=== PATIENT | female | born 1990 | race African-American/Black ===

== ENCOUNTER 2016-06-02 21:44 | Outpatient (CLI) | payer BC ==
[2016-06-02] MEDS ORDERED: Terbutaline 1 MG/ML SDV SUBCUT ONE (23:20)
[2016-06-02] MEDS ORDERED: Lactated Ringers 1,000 ML IV SCH (23:30)
== END 2016-06-03 00:58 | disposition home or self-care (01) ==
LOC: MW.OBCHECK 21:44 → MW.OB 21:50 → MW.OBCHECK 06-03 00:58
PROVIDERS: ATTEND Obstetrics & Gynecology
DX: R10.31 Right lower quadrant pain (principal); M54.5 Low back pain
CPT/HCPCS: 59025; 81003; J7120; 96360

== ENCOUNTER → 2016-06-09 | Outpatient (CLI) | payer BC | LOC: MW.CHOBGYN 10:12 | PROVIDERS: ATTEND Obstetrics & Gynecology | DX: Z34.90 Encounter for supervision of normal pregnancy, unspecified, unspecified trimester (principal) | CPT/HCPCS: 81003 ==

== ENCOUNTER 2016-07-20 03:23 | Outpatient (CLI) | payer BC ==
[2016-07-20] MEDS ORDERED: Lactated Ringers 1,000 ML IV ONE (06:28)
== END 2016-07-20 08:53 | disposition home or self-care (01) ==
LOC: MW.OBCHECK 03:23 → MW.OB 03:27 → MW.OBCHECK 08:53
PROVIDERS: ATTEND Obstetrics & Gynecology
DX: O47.02 False labor before 37 completed weeks of gestation, second trimester (principal); Z3A.25 25 weeks gestation of pregnancy
CPT/HCPCS: 59025; 81003; 96360; J7120

== ENCOUNTER → 2016-08-04 | Outpatient (CLI) | payer BC | LOC: MW.CHOBGYN 08:06 | PROVIDERS: ATTEND Obstetrics & Gynecology | DX: Z34.90 Encounter for supervision of normal pregnancy, unspecified, unspecified trimester (principal); Z53.9 Procedure and treatment not carried out, unspecified reason ==

== ENCOUNTER → 2016-08-07 | Outpatient (CLI) | payer BC | END | disposition home or self-care (01) | LOC: MW.CHOBGYN 08:31 | PROVIDERS: ATTEND Obstetrics & Gynecology | DX: Z34.90 Encounter for supervision of normal pregnancy, unspecified, unspecified trimester (principal) | CPT/HCPCS: 81003 ==

== ENCOUNTER 2016-09-22 10:02 | Inpatient (IN) | payer BC ==
[2016-09-22] MEDS: Lactated Ringers 1,000 ML IV SCH ×2 (11:00→15:58)
[2016-09-22] MEDS ORDERED: Octyl 2-Cyanoacrylate 1 Tube ONE (11:12)
[2016-09-22] MEDS ORDERED: Morphine PF 10 MG/10 ML SDV ONE (11:33)
[2016-09-22] MEDS ORDERED: Oxytocin 10 Units/1 ML SDV ONE ×2 (11:34→12:37)
[2016-09-22] MEDS ORDERED: Lactated Ringers 1,000 ML IV ONE (11:45)
[2016-09-22] MEDS ORDERED: Citric Acid/Sodium Citrate Solution 30 ML Cup PO ONE (11:45)
[2016-09-22] MEDS ORDERED: ePHEDrine 50 MG/ML SDV ONE (12:25)
[2016-09-22] MEDS ORDERED: Ondansetron 4 MG/2 ML SDV ONE (12:41)
[2016-09-22] MEDS ORDERED: Ondansetron 4 MG/2 ML SDV IV PRN (12:52)
[2016-09-22] MEDS ORDERED: Acetaminophen/oxyCODONE 325-5 MG Tab PO PRN ×3 (12:52→13:00)
[2016-09-22] MEDS ORDERED: diphenhydrAMINE 50 MG/ML SDV IVPUSH PRN ×2 (12:52→12:58)
[2016-09-22] MEDS ORDERED: Bisacodyl 10 MG Supp RECTAL PRN (12:52)
[2016-09-22] MEDS ORDERED: Lanolin 100% Cream 7 GM Tube TOP PRN (12:52)
[2016-09-22] MEDS ORDERED: Ibuprofen 800 MG Tab PO PRN (12:52)
--- NOTE | 2016-09-22 12:57 | PCM.OPNOTE ---
- General Post-Op/Procedure Note Date of Surgery/Procedure: 09/22/16 Operative Procedure(s): Repeat section Findings: Normal uterus tubes and ovary female fetus Apgars reported to be 8 and 9 Pre Op Diagnosis: Term previous section Post-Op Diagnosis: Same Anesthesia Technique: Spinal Primary Surgeon: Theron Chino Knitting Machine Operator: Ella Nettles EBL in mLs: 500 Complications: None Condition: Good
[2016-09-22] MEDS ORDERED: Meperidine PF 25 MG/ML Syringe IVPUSH ONE (12:58)
[2016-09-22] MEDS ORDERED: Naloxone 0.4 MG/ML Syringe IVPUSH PRN (12:58)
[2016-09-22] MEDS ORDERED: Nalbuphine 10 MG/1 ML Vial IVPUSH PRN (12:58)
[2016-09-22] MEDS ORDERED: Meperidine PF 50 MG/ML Syringe ONE (12:59)
[2016-09-22] MEDS ORDERED: Ketorolac 30 MG/ML SDV IVPUSH SCH (13:00)
[2016-09-22] MEDS ORDERED: fentaNYL 100 MCG/2 ML SDV IVPUSH PRN (13:00)
--- NOTE | 2016-09-22 13:33 | PCM.POSTAN ---
POST ANESTHESIA ASSESSMENT - MENTAL STATUS Mental Status: alert, oriented - RESPIRATORY Respiratory Status: respiratory rate WNL, airway patent, O2 saturation stable - CARDIOVASCULAR CV Status: pulse rate WNL, blood pressure stable - GASTROINTESTINAL GI Status: no symptoms - PAIN Pain Score: 0 (spinal still active) - POST OP HYDRATION Hydration Status: adequate & stable - OBSERVATIONS Free Text/Narrative:: to floor in good condition
--- NOTE | 2016-09-22 20:54 | OR ---
SURGEON: Theron Chino MD DATE OF PROCEDURE: 09/22/2016 PREOPERATIVE DIAGNOSIS: Term , previous section. POSTOPERATIVE DIAGNOSIS: Term , previous section. OPERATION PERFORMED: Repeat low transverse section. DEBEAKER: Ella Nettles. ANESTHESIA: Spinal by Ivory Farias and Dr. Hooper. ESTIMATED BLOOD LOSS: 500 mL. COMPLICATION: None. FINDING: Female fetus in vertex presentation. score reported to be 8 and 9. Weight is not available at the time. INDICATION: This patient is term. She had a previous section. She is admitted for elective repeat section. PROCEDURE IN DETAIL: The patient was brought to the OR, properly identified. After adequate level of spinal anesthesia, the patient was prepped and draped in sterile fashion as usual. Low transverse Pfannenstiel skin incision through the old scar was done. Britta's fascia and rectus fascia was opened in direction of the incision. The 2 recti muscles and peritoneal cavity was entered. Low transverse uterine incision was done and extended manually. Hand and fetus were in a vertex position, delivered without any problem, cried immediately, handed to the resuscitator team, who was present at the time of the section. The score reported to be 8 and 9. The placenta delivered spontaneous, complete, and intact, and repair of the lower uterine segments done with 2-0 Vicryl continuous interlocking in 2 layers. Reperitonealization done with 3-0 Vicryl continuous and this rectus fascia is closed with #1 PDS continuous and the Britta's fascia with 3-0 Vicryl continuous and the skin in a subcuticular fashion and Dermabond. Instrument and sponge count was correct. The patient tolerated the procedure well, went to recovery room in stable general condition. SHIV / TORRES /[id number]
[2016-09-22] MEDS: Docusate Sodium 100 MG Cap PO SCH (21:00)
--- NOTE | 2016-09-23 07:43 | PCM48HPAN ---
Post Anesthesia Note - EVALUATION WITHIN 48HRS OF ANESTHETIC Vital Signs in Normal Range: Yes Patient Participated in Evaluation: Yes Respiratory Function Stable: Yes Airway Patent: Yes Cardiovascular Function Stable: Yes Hydration Status Stable: Yes Pain Control Satisfactory: Yes Nausea and Vomiting Control Satisfactory: Yes Mental Status Recovered: Yes - COMMENTS/OBSERVATIONS Free Text/Narrative:: refusing pain medications
[2016-09-23] MEDS: Docusate Sodium 100 MG Cap PO SCH (09:08)
--- NOTE | 2016-09-23 09:33 | PCM.DCSUM1 ---
Discharge Summary - Hospital Course Free Text/Narrative:: Discharge home with . Follow up in 10 days for incision check and 6 weeks for post exam. - Discharge Data Discharge Date: 09/23/16 Discharge Disposition: Home, Self-Care 01 Condition: Good - Patient Summary/Data Operative Procedure(s) Performed: Repeat section - Patient Instructions Diet: Usual Diet as Tolerated Activity: As Tolerated, Rest and Relax Today Driving: Do Not Drive Showering/Bathing: May Shower Wound/Incision Care: Keep Operative Site/Wound Site Clean and Dry Notify Provider of: Fever, Increased Pain, Swelling and Redness, Drainage, Nausea and/or Vomiting Other/Special Instructions: Discharge home with infant. Follow up in 10 days for incision check and 6 weeks for post exam. - Discharge Plan Home Medications: Home Meds Acetaminophen [Tylenol] 2 tab PO ASDIRECTED PRN 09/20/16 [History] Vit W-Ca,Fe,FA(<1 mg) [ Vitamins] 1 tab PO DAILY 09/20/16 [ History] Referrals: [facility] [Outside] Theron Chino MD [Physician] - (1 week- September 29 @ 1:30pm w/ Dr. Chino 6 week - November 03 @ 1:30pm w/ Dr. Chino ) - General Info Date of Service: 09/23/16 Functional Status: Reports: pain controlled, tolerating diet, ambulating, urinating - Review of Systems General: Reports: No Symptoms HEENT: Reports: no symptoms Pulmonary: Reports: no symptoms Cardiovascular: Reports: No Symptoms Gastrointestinal: Reports: No symptoms Genitourinary: Reports: no symptoms Musculoskeletal: Reports: no symptoms Skin: Reports: no symptoms Neurological: Reports: No Symptoms Psychiatric: Reports: no symptoms - Patient Data Vitals - Most Recent: Last Vital Signs Temp 37.2 C 09/23/16 04:00 Pulse 78 09/23/16 06:00 Resp 16 09/23/16 06:00 BP 98/58 L 09/23/16 04:00 Pulse Ox 98 09/23/16 06:00 Weight - Most Recent: 78.018 kg I&O - Last 24 hours: Intake & Output 09/22/16 09/23/16 09/23/16 22:59 06:59 14:59 Intake Total 500 Output Total 350 3000 Balance 150 -3000 Lab Results - Last 24 hrs: Laboratory Results - last 24 hr 09/22/16 09/22/16 09/22/16 Range/Units 10:50 10:50 10:50 WBC 8.85 (4.0-11.0) K/uL RBC 4.16 L (4.30-5.90) M/uL Hgb 13.4 (12.0-16.0) g/dL Hct 40.4 (36.0-46.0) % MCV 97.1 (80.0-98.0) fL MCH 32.2 H (27.0-32.0) pg MCHC 33.2 (31.0-37.0) g/dL RDW Std Deviation 46.4 (28.0-62.0) fl RDW Coeff of Fely 13 (11.0-15.0) % Plt Count 116 L (150-400) K/uL MPV 13.10 H (7.40-12.00) fL Nucleated RBC % 0.0 /100WBC Nucleated RBCs # 0 K/uL Total Bilirubin 1.3 (0.1-1.5) mg/dL Direct Bilirubin 0.4 (0.0-0.5) mg/dL Indirect Bilirubin 0.9 (0.0-1.0) mg/dL AST 17 (5-40) IU/L ALT 12 (8-54) IU/L Alkaline Phosphatase 59 (40-150) Total Protein 6.9 (6.0-8.0) g/dL Albumin 3.7 (3.5-5.0) g/dL Globulin 3.2 (2.0-3.5) g/dL Albumin/Globulin Ratio 1.2 L (1.3-2.8) Blood Type A POSITIVE Antibody Screen NEGATIVE 09/23/16 Range/Units 05:38 WBC (4.0-11.0) K/uL RBC (4.30-5.90) M/uL Hgb 11.2 L (12.0-16.0) g/dL Hct 34.5 L (36.0-46.0) % MCV (80.0-98.0) fL MCH (27.0-32.0) pg MCHC (31.0-37.0) g/dL RDW Std Deviation (28.0-62.0) fl RDW Coeff of Fely (11.0-15.0) % Plt Count (150-400) K/uL MPV (7.40-12.00) fL Nucleated RBC % /100WBC Nucleated RBCs # K/uL Total Bilirubin (0.1-1.5) mg/dL Direct Bilirubin (0.0-0.5) mg/dL Indirect Bilirubin (0.0-1.0) mg/dL AST (5-40) IU/L ALT (8-54) IU/L Alkaline Phosphatase (40-150) Total Protein (6.0-8.0) g/dL Albumin (3.5-5.0) g/dL Globulin (2.0-3.5) g/dL Albumin/Globulin Ratio (1.3-2.8) Blood Type Antibody Screen Med Orders - Current: Current Medications Bisacodyl (Dulcolax) 10 mg RECTAL .ONCE PRN PRN Reason: Constipation Diphenhydramine HCl (Benadryl) 25 mg IVPUSH Q4H PRN PRN Reason: Itching Stop: 09/23/16 12:59 Docusate Sodium (Colace) 100 mg PO BID [facility] Last Admin: 09/23/16 09:08 Dose: 100 mg Emollient Ointment (Lansinoh Hpa) 0 gm TOP ASDIRECTED PRN PRN Reason: Sore Nipples Fentanyl (Sublimaze) 25 - 50 mcg IVPUSH Q30M PRN PRN Reason: Pain Lactated Ringer's (Ringers, Lactated) 1,000 mls @ 125 mls/hr IV ASDIRECTED [facility] Last Admin: 09/22/16 15:58 Dose: 125 mls/hr Nalbuphine HCl (Nubain) 5 mg IVPUSH Q3H PRN PRN Reason: Pruritis Stop: 09/23/16 13:00 Naloxone HCl (Narcan) 0.1 mg IVPUSH ONETIME PRN PRN Reason: Other Stop: 09/23/16 13:00 Ondansetron HCl (Zofran) 4 mg IV Q4H PRN PRN Reason: Nausea/Vomiting Oxycodone/Acetaminophen (Percocet 325-5 Mg) 1 tab PO Q4H PRN PRN Reason: Pain (moderate 4-6) Oxycodone/Acetaminophen (Percocet 325-5 Mg) 2 tab PO Q4H PRN PRN Reason: Pain (moderate 4-6) Oxycodone/Acetaminophen (Percocet 325-5 Mg) 1 - 2 tab PO Q6H PRN PRN Reason: Pain Stop: 09/24/16 14:00 Last Admin: 09/23/16 09:09 Dose: 1 tab Discontinued Medications Diphenhydramine HCl (Benadryl) 25 mg IVPUSH Q6H PRN PRN Reason: Itching or Nausea Ephedrine Sulfate (Ephedrine Sulfate) Confirm Administered Dose 50 mg .ROUTE .STK-MED ONE Stop: 09/22/16 12:26 Cefazolin Sodium/Dextrose (Ancef) Confirm Administered Dose 50 mls @ as directed .ROUTE .STK-MED ONE Stop: 09/22/16 12:05 Ibuprofen (Motrin) 800 mg PO Q8H PRN PRN Reason: mild pain or fever Ketorolac Tromethamine (Toradol) 30 mg IVPUSH Q6H JAY Stop: 09/23/16 13:01 Last Admin: 09/22/16 16:51 Dose: Not Given Meperidine HCl (Demerol) 25 mg IVPUSH ONETIME ONE Stop: 09/22/16 12:59 Last Admin: 09/22/16 16:48 Dose: Not Given Meperidine HCl (Demerol) Confirm Administered Dose 50 mg .ROUTE .STK-MED ONE Stop: 09/22/16 13:00 Last Admin: 09/22/16 13:15 Dose: 50 mg Morphine Sulfate (Duramorph Pf) Confirm Administered Dose 10 mg .ROUTE .STK-MED ONE Stop: 09/22/16 11:34 Octyl Cyanoacrylate (Dermabond Advance) Confirm Administered Dose 1 applic .ROUTE .STK-MED ONE Stop: 09/22/16 11:13 Ondansetron HCl (Zofran) Confirm Administered Dose 4 mg .ROUTE .STK-MED ONE Stop: 09/22/16 12:42 Oxytocin (Pitocin) Confirm Administered Dose 20 unit .ROUTE .STK-MED ONE Stop: 09/22/16 11:35 Oxytocin (Pitocin) Confirm Administered Dose 20 unit .ROUTE .STK-MED ONE Stop: 09/22/16 12:38 - Exam General: Reports: alert, oriented, cooperative, no acute distress Lungs: Reports: Normal respiratory effort Abdomen: Reports: soft, no distension, tenderness (Female) Exam: Vaginal Bleeding Rectal (Female) Exam: Deferred Back Exam: Reports: Full Range of Motion Skin: Reports: warm, dry, intact Neurological: Reports: no new focal deficit, normal speech, normal tone Psy/Mental Status: Reports: alert, normal affect, normal mood *Q Meaningful Use (DIS) - VTE *Q VTE Criteria *Q: - Stroke *Q Stroke Criteria *Q: - AMI *Q AMI Criteria *Q:
[2016-09-23 19:53] VITALS: BP 105/68
== END 2016-09-23 23:25 | disposition home or self-care (01) | DRG 540 ==
LOC: MW.OB 10:02
PROVIDERS: ADMIT Obstetrics & Gynecology; ATTEND Obstetrics & Gynecology
PROC: 10D00Z1 Extraction of Products of Conception, Low, Open Approach (ICD-10-PCS; principal; 2016-09-22)
DX: O34.211 Maternal care for low transverse scar from previous cesarean delivery (principal); Z3A.40 40 weeks gestation of pregnancy; Z37.0 Single live birth
CPT/HCPCS: 01961; 36415; 59025; 80076; 85014; 85018; 85027; 86850; 86900; 86901; A9270-GY; J0690; J2175; J2270; J2405; J2590; J7120

== ENCOUNTER 2017-02-08 09:36 | Emergency (ER) | payer BC ==
--- NOTE | 2017-02-08 10:30 | EDM.PDOC ---
ED HPI GENERAL MEDICAL PROBLEM - General Chief Complaint: Back Pain or Injury Stated Complaint: BACK PAIN Time Seen by Provider: 02/08/17 10:09 Source of Information: Reports: Patient History Limitations: Reports: No Limitations - History of Present Illness INITIAL COMMENTS - FREE TEXT/NARRATIVE: HISTORY AND PHYSICAL: History of present illness: Patient is a 27-year-old female who presents to the emergency room today with complaints of upper back pain 3 days. She essentially had a vaginal delivery and has since been doing a lot of lifting and carrying of her child and toddler. He states the pain is aggravated when she has to reach down to crop picker her kids or twist to reach across her chest. She denies any chest pain, shortness of breath, diaphoresis or fever or chills. Denies any cough, abdominal pain, or dysuria. No recent trauma or injury. She is currently breast-feeding. Review of systems: As per history of present illness and below otherwise all systems reviewed and negative. Past medical history: As per history of present illness and as reviewed below otherwise noncontributory. Surgical history: As per history of present illness and as reviewed below otherwise noncontributory. Social history: No reported history of drug or alcohol abuse. Family history: As per history of present illness and as reviewed below otherwise noncontributory. Physical exam: Gen.: Nontoxic appearing 27-year-old -[place] female. Well-developed and well-nourished. Alert and oriented. HEENT: Atraumatic, normocephalic, pupils reactive, negative for conjunctival pallor or scleral icterus, mucous membranes moist, throat clear, neck supple, nontender, trachea midline. Lungs: Clear to auscultation, breath sounds equal bilaterally, chest nontender. Heart: S1S2, regular, negative for clicks, rubs, or JVD. Abdomen: Soft, nondistended, nontender. Negative for masses or hepatosplenomegaly. Negative for costovertebral tenderness. Pelvis: Stable nontender. Genitourinary: Deferred. Rectal: Deferred. Extremities: Atraumatic, negative for cords or calf pain. Neurovascular unremarkable. Neuro: Awake, alert, oriented. Cranial nerves II through XII unremarkable. Cerebellum unremarkable. Motor and sensory unremarkable throughout. Exam nonfocal. Chest x-ray shows no pneumonia or acute findings. Her pain is likely to be a muscular strain. We did discuss that with her breast-feeding she is limited to what she can take your pain management. I did suggest she use gentle heat to the area and Tylenol. Proper body mechanics were reviewed with the patient to avoid re-injury. She voices understanding and is agreeable to plan of care. She will follow up with her primary care provider in the next couple days if she continues to have pain. Diagnostics: Chest x-ray Therapeutics: Toradol - declined Impression: Muscular strain Plan: 1. Apply gentle heat to the painful area. With breast-feeding you are limited to what he can take for pain management. Tylenol is safe and can be taken as directed. 2. Perform proper body mechanics to prevent reinjury. 3. Follow-up with your primary care provider in the next 1-2 days. Return to the ED as needed and as discussed. Definitive disposition and diagnosis as appropriate pending reevaluation and review of above. 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 ED EXAM, UPPER BACK/NECK PAIN - Physical Exam Exam: See Below (See dictation) Course - Vital Signs Last Recorded V/S: Last Vital Signs Temp 37.0 C 02/08/17 09:49 Pulse 105 H 02/08/17 09:49 Resp 12 02/08/17 09:49 BP 118/70 02/08/17 09:49 Pulse Ox 98 02/08/17 09:49 - Orders/Labs/Meds Meds: Medications Discontinued Medications Generic Name Dose Route Start Last Admin Trade Name Edson PRN Reason Stop Dose Admin Ketorolac Tromethamine 60 mg 02/08/17 10:39 Toradol IM 02/08/17 10:40 ONETIME ONE Departure - Departure Time of Disposition: 11:29 Disposition: Home, Self-Care 01 Clinical Impression: Muscle strain - Discharge Information Instructions: Muscle Strain, [id number] Referrals: PCP,None [Primary Care Provider] - Forms: ED Department Discharge Additional Instructions: My general discharge The following information is given to patients seen in the emergency department who are being discharged to home. This information is to outline your options for follow-up care. We provide all patients seen in our emergency department with a follow-up referral. The need for follow-up, as well as the timing and circumstances, are variable depending upon the specifics of your emergency department visit. If you don't have a primary care physician on staff, we will provide you with a referral. We always advise you to contact your personal physician following an emergency department visit to inform them of the circumstance of the visit and for follow-up with them and/or the need for any referrals to a consulting specialist. The emergency department will also refer you to a specialist when appropriate. This referral assures that you have the opportunity for follow-up care with a specialist. All of these measure are taken in an effort to provide you with optimal care, which includes your follow-up. Under all circumstances we always encourage you to contact your private physician who remains a resource for coordinating your care. When calling for follow-up care, please make the office aware that this follow-up is from your recent emergency room visit. If for any reason you are refused follow-up, please contact the [facility] Emergency Department at and asked to speak to the emergency department charge nurse. [facility] [address] [place] [id number] 1. Apply gentle heat to the painful area. With breast-feeding you are limited to what he can take for pain management. Tylenol is safe and can be taken as directed. 2. Perform proper body mechanics to prevent reinjury. 3. Follow-up with your primary care provider in the next 1-2 days. Return to the ED as needed and as discussed.
[2017-02-08] MEDS ORDERED: Ketorolac 60 MG/2 ML SDV IM ONE (10:39)
--- NOTE | 2017-02-08 10:54 | CR ---
EXAMINATION: Two-view chest (PA and Lateral views). HISTORY: Shortness of breath. FINDINGS: The trachea is midline. The cardiomediastinal silhouette is within normal limits. No pulmonary infilt rates, effusions or pneumothorax. Osseous structures appear unremarkable. IMPRESSION: No acute cardiopulmonary process.
[2017-02-08 11:41] VITALS: BP 110/72
== END 2017-02-08 11:40 | disposition home or self-care (01) ==
LOC: MW.ED 09:36
DX: S29.012A Strain of muscle and tendon of back wall of thorax, initial encounter (principal); Z88.6 Allergy status to analgesic agent; X50.9XXA Other and unspecified overexertion or strenuous movements or postures, initial encounter
CPT/HCPCS: 71020; 71020-26; 99283; 99284

== ENCOUNTER 2017-12-22 14:55 | Emergency (ER) | payer BC ==
[2017-12-22 15:02] VITALS: BP 129/75
[2017-12-22] MEDS ORDERED: Sodium Chloride 0.9% 10 ML Syringe FLUSH PRN (15:19)
[2017-12-22] MEDS ORDERED: Sodium Chloride 0.9% 2.5 ML Syringe FLUSH PRN ×2 (15:19)
[2017-12-22] MEDS ORDERED: Aspirin 81 MG Tab.Chew PO ONE (15:19)
[2017-12-22] MEDS ORDERED: Famotidine 20 MG/2 ML SDV IVPUSH ONE (15:19)
[2017-12-22] MEDS ORDERED: Sodium Chloride 0.9% 1,000 ML IV ONE (15:19)
--- NOTE | 2017-12-22 15:21 | EDM.PDOC ---
ED HPI GENERAL MEDICAL PROBLEM - General Chief Complaint: Chest Pain Stated Complaint: CHEST PAIN Time Seen by Provider: 12/22/17 15:04 Source of Information: Reports: Patient History Limitations: Reports: No Limitations - History of Present Illness INITIAL COMMENTS - FREE TEXT/NARRATIVE: HISTORY AND PHYSICAL: History of present illness: 27-year-old female presenting [facility] department with chief complaint of 2 days of substernal chest pain. Patient states that for the past 2 days she has had substernal chest pain that radiates upwards towards her throat. She denies any associated nausea, vomiting , diaphoresis, or shortness of breath. She does have a history of GERD but states that this seems different. She does take omeprazole but not on a daily basis. She describes the pain as burning and constant. She denies any other history of cardiopulmonary disease. She currently denies any palpitations, shortness of breath, syncopal episodes, or focal neurologic deficits. Pain is not reproducible on exam. Initial EKG showed sinus tachycardia with a rate of 118 but no significant acute ST changes Review of systems: As per history of present illness and below otherwise all systems reviewed and negative. Past medical history: As per history of present illness and as reviewed below otherwise noncontributory. Surgical history: As per history of present illness and as reviewed below otherwise noncontributory. Social history: No reported history of drug or alcohol abuse. Family history: As per history of present illness and as reviewed below otherwise noncontributory. Physical exam: HEENT: Atraumatic, normocephalic, pupils reactive, negative for conjunctival pallor or scleral icterus, mucous membranes moist, throat clear, neck supple, nontender, trachea midline. Lungs: Clear to auscultation, breath sounds equal bilaterally, chest nontender. Heart: S1S2, regular, negative for clicks, rubs, or JVD. Abdomen: Soft, nondistended, nontender. Negative for masses or hepatosplenomegaly. Negative for costovertebral tenderness. Pelvis: Stable nontender. Genitourinary: Deferred. Rectal: Deferred. Extremities: Atraumatic, negative for cords or calf pain. Neurovascular unremarkable. Neuro: Awake, alert, oriented. Cranial nerves II through XII unremarkable. Cerebellum unremarkable. Motor and sensory unremarkable throughout. Exam nonfocal. Diagnostics: CBC, CMP, INR, troponin, d-dimer, H. pylori, chest x-ray, EKG Therapeutics: ASA 324 mg 1 GI cocktail Omeprazole 20 mg by mouth twice a day 14 days, clarithromycin 500 mg by mouth twice a day 14 days, amoxicillin 1000 g by mouth twice a day 10 days Impression: Atypical chest pain Plan: CBC, CMP, INR, troponin, d-dimer, chest x-ray, and EKG were unremarkable other than for sinus tachycardia. Patient was given a GI cocktail with some improvement with her chest pain. In addition, H. pylori was found to be positive. I did discuss this at length with the patient as well as her and told them that she would need to be on 2 antibiotics for 14 days as well as omeprazole twice daily for this duration. In addition she should follow-up and establish a primary care provider. All this information was given to her. I also indicated that in the future she most likely should follow-up with a general surgeon to have an EGD done. Both patient and were understanding. Patient was discharged in good condition with above instructions and told to return to the emergency department if she had any new or worsening symptoms. Definitive disposition and diagnosis as appropriate pending reevaluation and review of above. 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 ED EXAM, GENERAL - Physical Exam Exam: See Below Course - Vital Signs Last Recorded V/S: Last Vital Signs Temp 98.2 F 12/22/17 14:58 Pulse 118 H 12/22/17 14:58 Resp 20 12/22/17 14:58 BP 129/75 12/22/17 14:58 Pulse Ox 97 12/22/17 15:19 - Orders/Labs/Meds Orders: Active Orders 24 hr Category Date Time Status Cardiac Monitoring [RC] . DIRECTED Care 12/22/17 15:19 Active EKG Documentation Completion [RC] STAT Care 12/22/17 15:19 Active Oxygen Therapy [RC] ASDIRECTED Care 12/22/17 15:19 Active Pulse Oximetry [RC] ASDIRECTED Care 12/22/17 15:19 Active Chest 1V Frontal [CR] Stat Exams 12/22/17 15:19 Taken UA W/MICROSCOPIC [URIN] Stat Lab 12/22/17 15:20 Ordered Saline Lock Insert [OM.PC] Stat Oth 12/22/17 15:19 Ordered Labs: Laboratory Tests 12/22/17 12/22/17 12/22/17 Range/Units 15:38 15:38 15:38 WBC 6.15 (4.0-11.0) K/uL RBC 4.65 (4.30-5.90) M/uL Hgb 14.3 (12.0-16.0) g/dL Hct 43.3 (36.0-46.0) % MCV 93.1 (80.0-98.0) fL MCH 30.8 (27.0-32.0) pg MCHC 33.0 (31.0-37.0) g/dL RDW Std Deviation 42.5 (28.0-62.0) fl RDW Coeff of Fely 13 (11.0-15.0) % Plt Count 153 (150-400) K/uL MPV 13.20 H (7.40-12.00) fL Neut % (Auto) 36.4 L (48.0-80.0) % Lymph % (Auto) 49.6 H (16.0-40.0) % [place] % (Auto) 7.8 (0.0-15.0) % Eos % (Auto) 5.7 (0.0-7.0) % Baso % (Auto) 0.5 (0.0-1.5) % Neut # (Auto) 2.2 (1.4-5.7) K/uL Lymph # (Auto) 3.1 H (0.6-2.4) K/uL [place] # (Auto) 0.5 (0.0-0.8) K/uL Eos # (Auto) 0.4 (0.0-0.7) K/uL Baso # (Auto) 0.0 (0.0-0.1) K/uL Nucleated RBC % 0.0 /100WBC Nucleated RBCs # 0 K/uL INR 1.03 D-Dimer, Quantitative < 0.19 (0.0-0.52) mg/LFEU Sodium 140 (136-145) mmol/L Potassium 3.4 L (3.5-5.1) mmol/L Chloride 103 (98-107) mmol/L Carbon Dioxide 27.5 (21.0-32.0) mmol/L BUN 15 (7.0-18.0) mg/dL Creatinine 0.9 (0.6-1.0) mg/dL Est Cr Clr Drug Dosing 82.11 mL/min Estimated GFR (MDRD) > 60.0 ml/min Glucose 81 (74-106) mg/dL Calcium 9.7 (8.5-10.1) mg/dL Total Bilirubin 0.7 (0.2-1.0) mg/dL AST 13 L (15-37) IU/L ALT 18 (14-63) IU/L Alkaline Phosphatase 61 (46-116) U/L Troponin I < 0.050 (0.000-0.056) ng/mL Total Protein 7.6 (6.4-8.2) g/dL Albumin 4.0 (3.4-5.0) g/dL Globulin 3.6 H (2.0-3.5) g/dL Albumin/Globulin Ratio 1.1 L (1.3-2.8) Lipase 155 (73-393) U/L H. pylori IgG Antibody (NEG) 12/22/17 Range/Units 16:00 WBC (4.0-11.0) K/uL RBC (4.30-5.90) M/uL Hgb (12.0-16.0) g/dL Hct (36.0-46.0) % MCV (80.0-98.0) fL MCH (27.0-32.0) pg MCHC (31.0-37.0) g/dL RDW Std Deviation (28.0-62.0) fl RDW Coeff of Fely (11.0-15.0) % Plt Count (150-400) K/uL MPV (7.40-12.00) fL Neut % (Auto) (48.0-80.0) % Lymph % (Auto) (16.0-40.0) % [place] % (Auto) (0.0-15.0) % Eos % (Auto) (0.0-7.0) % Baso % (Auto) (0.0-1.5) % Neut # (Auto) (1.4-5.7) K/uL Lymph # (Auto) (0.6-2.4) K/uL [place] # (Auto) (0.0-0.8) K/uL Eos # (Auto) (0.0-0.7) K/uL Baso # (Auto) (0.0-0.1) K/uL Nucleated RBC % /100WBC Nucleated RBCs # K/uL INR D-Dimer, Quantitative (0.0-0.52) mg/LFEU Sodium (136-145) mmol/L Potassium (3.5-5.1) mmol/L Chloride (98-107) mmol/L Carbon Dioxide (21.0-32.0) mmol/L BUN (7.0-18.0) mg/dL Creatinine (0.6-1.0) mg/dL Est Cr Clr Drug Dosing mL/min Estimated GFR (MDRD) ml/min Glucose (74-106) mg/dL Calcium (8.5-10.1) mg/dL Total Bilirubin (0.2-1.0) mg/dL AST (15-37) IU/L ALT (14-63) IU/L Alkaline Phosphatase (46-116) U/L Troponin I (0.000-0.056) ng/mL Total Protein (6.4-8.2) g/dL Albumin (3.4-5.0) g/dL Globulin (2.0-3.5) g/dL Albumin/Globulin Ratio (1.3-2.8) Lipase (73-393) U/L H. pylori IgG Antibody POSITIVE H (NEG) Meds: Medications Discontinued Medications Generic Name Dose Route Start Last Admin Trade Name Freq PRN Reason Stop Dose Admin Aspirin 324 mg 12/22/17 15:19 12/22/17 16:26 Aspirin PO 12/22/17 15:20 324 mg ONETIME ONE Administration Al Hydroxide/Mg Hydroxide 15 0 ml 12/22/17 16:00 12/22/17 16:29 ml/ Lidocaine HCl 5 ml PO 12/22/17 16:01 1 each ONETIME ONE Administration Famotidine 20 mg 12/22/17 15:19 12/22/17 16:05 Pepcid IVPUSH 12/22/17 15:20 Not Given ONETIME ONE Sodium Chloride 1,000 mls @ 999 mls/hr 12/22/17 15:19 12/22/17 16:06 Normal Saline IV 12/22/17 16:19 Not Given BOLUS ONE Lorazepam 1 mg 12/22/17 16:00 12/22/17 16:27 Ativan PO 12/22/17 16:01 1 mg ONETIME ONE Administration Sodium Chloride 2.5 ml 12/22/17 15:19 Saline Flush FLUSH ASDIRECTED PRN Keep Vein Open Sodium Chloride 10 ml 12/22/17 15:19 Saline Flush FLUSH ASDIRECTED PRN Keep Vein Open Sodium Chloride 2.5 ml 12/22/17 15:19 Saline Flush FLUSH ASDIRECTED PRN Keep Vein Open Departure - Departure Time of Disposition: 16:59 Disposition: Home, Self-Care 01 Condition: Good Clinical Impression: Atypical chest pain, Helicobacter positive gastritis GERD (gastroesophageal reflux disease) Qualifiers: Esophagitis presence: esophagitis presence not specified Qualified Code(s): K21.9 - Gastro-esophageal reflux disease without esophagitis - Discharge Information Referrals: PCP,None [Primary Care Provider] - Forms: ED Department Discharge Additional Instructions: My general discharge The following information is given to patients seen in the emergency department who are being discharged to home. This information is to outline your options for follow-up care. We provide all patients seen in our emergency department with a follow-up referral. The need for follow-up, as well as the timing and circumstances, are variable depending upon the specifics of your emergency department visit. If you don't have a primary care physician on staff, we will provide you with a referral. We always advise you to contact your personal physician following an emergency department visit to inform them of the circumstance of the visit and for follow-up with them and/or the need for any referrals to a consulting specialist. The emergency department will also refer you to a specialist when appropriate. This referral assures that you have the opportunity for follow-up care with a specialist. All of these measure are taken in an effort to provide you with optimal care, which includes your follow-up. Under all circumstances we always encourage you to contact your private physician who remains a resource for coordinating your care. When calling for follow-up care, please make the office aware that this follow-up is from your recent emergency room visit. If for any reason you are refused follow-up, please contact the [facility] Emergency Department at and asked to speak to the emergency department charge nurse. [facility] [address] [place] [address] Please call above number on Sunday to schedule a follow-up appointment with a primary care physician. Be sure to tell them that you were seen in the emergency department and they wish for you to be seen as soon as possible. Take all Prescription medications as directed for 2 weeks (14 days). Return to emergency department if any new or worsening symptoms. - My Orders Last 24 Hours: My Active Orders 12/22/17 15:19 Cardiac Monitoring [RC] . DIRECTED EKG Documentation Completion [RC] STAT Oxygen Therapy [RC] ASDIRECTED Pulse Oximetry [RC] ASDIRECTED Chest 1V Frontal [CR] Stat Saline Lock Insert [OM.PC] Stat 12/22/17 15:20 UA W/MICROSCOPIC [URIN] Stat - Assessment/Plan Last 24 Hours: My Active Orders 12/22/17 15:19 Cardiac Monitoring [RC] . DIRECTED EKG Documentation Completion [RC] STAT Oxygen Therapy [RC] ASDIRECTED Pulse Oximetry [RC] ASDIRECTED Chest 1V Frontal [CR] Stat Saline Lock Insert [OM.PC] Stat 12/22/17 15:20 UA W/MICROSCOPIC [URIN] Stat
[2017-12-22] MEDS ORDERED: Alum Hydrox/Mag Hydrox/Simeth 15 ML, Lidocaine 2% 5 ML PO ONE ×2 (16:00)
[2017-12-22] MEDS ORDERED: LORazepam 1 MG Tab PO ONE (16:00)
[2017-12-22 16:14] LABS: CHLORIDE,CL 103 mmol/L (98-107); SODIUM,NA 140 mmol/L (136-145)
--- NOTE | 2017-12-24 14:45 | CR ---
EXAM DATE: 12/22/17 PATIENT'S AGE: 27 Patient: USAMA RAMIREZ Facility: [place], [place] Site . Site : 1990 Study: XRay Chest [id number]/22/[id number] 4:07:31 PM Ordering Physician: Doctor Cerda Final Report: HISTORY: Chest pain. FINDINGS: Single AP view of the chest is provided. The lungs are normally expanded and clear. No pleural effusion or pneumothorax is seen. There is likely nipple shadow at the right lung base. Cardiac silhouette size is within normal limits. Dictated by Jl Thornton MD @ Dec 22 2017 4:40PM (Electronic Signature) Report Signed by Proxy. EL
== END 2017-12-22 17:15 | disposition home or self-care (01) ==
LOC: MW.ED 14:55
DX: K29.70 Gastritis, unspecified, without bleeding (principal); B96.81 Helicobacter pylori [H. pylori] as the cause of diseases classified elsewhere; K21.9 Gastro-esophageal reflux disease without esophagitis; Z79.899 Other long term (current) drug therapy; Z88.6 Allergy status to analgesic agent
CPT/HCPCS: 36415; 71045; 80053; 83690; 84484; 85025; 85379; 85610; 86677; 93005; 99285; A9270; 99284

== ENCOUNTER 2018-07-29 23:01 | Emergency (ER) | payer BC ==
--- NOTE | 2018-07-29 23:05 | EDM.PDOC ---
ED HPI GENERAL MEDICAL PROBLEM - General Stated Complaint: CHEST PAIN Time Seen by Provider: 07/29/18 23:03 - History of Present Illness INITIAL COMMENTS - FREE TEXT/NARRATIVE: HISTORY AND PHYSICAL: History of present illness: Patient's a 28-year-old female with no significant past medical history presents with concern of chest pain and upper back pain tonight iswithin shortness breath nausea vomiting fever chills or other complaints she denies trauma Review of systems: As per history of present illness and below otherwise all systems reviewed and negative. Past medical history: As per history of present illness and as reviewed below otherwise noncontributory. Surgical history: As per history of present illness and as reviewed below otherwise noncontributory. Social history: No reported history of drug or alcohol abuse. Family history: As per history of present illness and as reviewed below otherwise noncontributory. Physical exam: HEENT: Atraumatic, normocephalic, pupils reactive, negative for conjunctival pallor or scleral icterus, mucous membranes moist, throat clear, neck supple, nontender, trachea midline. Lungs: Clear to auscultation, breath sounds equal bilaterally, chest nontender. Heart: S1S2, regular, negative for clicks, rubs, or JVD. Abdomen: Soft, nondistended, nontender. Negative for masses or hepatosplenomegaly. Negative for costovertebral tenderness. Pelvis: Stable nontender. Genitourinary: Deferred. Rectal: Deferred. Extremities: Atraumatic, negative for cords or calf pain. Neurovascular unremarkable. Neuro: Awake, alert, oriented. Cranial nerves II through XII unremarkable. Cerebellum unremarkable. Motor and sensory unremarkable throughout. Exam nonfocal. Diagnostics: CBC CMP troponin PT/INR chest x-ray EKG d-dimer hCG Therapeutics: IV O2 monitor Impression: #1 chest/upper back pain Definitive disposition and diagnosis as appropriate pending reevaluation and review of above. - Related Data Allergies Allergy/AdvReac Type Severity Reaction Status Date / Time ibuprofen Allergy Tachycardia Verified 07/29/18 23:05 Home Meds: Home Meds . 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 ED EXAM, GENERAL - Physical Exam Exam: See Below (See dictation) Course - Vital Signs Last Recorded V/S: Last Vital Signs Temp 36.4 C 07/29/18 23:01 Pulse 90 07/30/18 00:59 Resp 18 07/30/18 00:59 BP 124/85 07/30/18 00:59 Pulse Ox 94 L 07/30/18 00:59 - Orders/Labs/Meds Orders: Active Orders 24 hr Category Date Time Status EKG 12 Lead [EKG Documentation Completion] [RC] STAT Care 07/30/18 00:56 Active EKG Documentation Completion [RC] STAT Care 07/29/18 23:06 Active CULTURE URINE [RM] Stat Lab 07/29/18 23:22 Received Sodium Chloride 0.9% [Saline Flush] Med 07/29/18 23:06 Active 10 ml FLUSH ASDIRECTED PRN Sodium Chloride 0.9% [Saline Flush] Med 07/29/18 23:06 Active 2.5 ml FLUSH ASDIRECTED PRN Saline Lock Insert [OM.PC] Stat Oth 07/29/18 23:06 Ordered Medication Orders Sodium Chloride (Saline Flush) 10 ml FLUSH ASDIRECTED PRN PRN Reason: Keep Vein Open Sodium Chloride (Saline Flush) 2.5 ml FLUSH ASDIRECTED PRN PRN Reason: Keep Vein Open Labs: Laboratory Tests 07/29/18 07/29/18 07/29/18 Range/Units 23:12 23:12 23:12 WBC 10.60 (4.0-11.0) K/uL RBC 4.32 (4.30-5.90) M/uL Hgb 13.6 (12.0-16.0) g/dL Hct 40.8 (36.0-46.0) % MCV 94.4 (80.0-98.0) fL MCH 31.5 (27.0-32.0) pg MCHC 33.3 (31.0-37.0) g/dL RDW Std Deviation 44.2 (28.0-62.0) fl RDW Coeff of Fely 13 (11.0-15.0) % Plt Count 188 (150-400) K/uL MPV 13.20 H (7.40-12.00) fL Neut % (Auto) 22.1 L (48.0-80.0) % Lymph % (Auto) 68.8 H (16.0-40.0) % [place] % (Auto) 7.2 (0.0-15.0) % Eos % (Auto) 1.6 (0.0-7.0) % Baso % (Auto) 0.3 (0.0-1.5) % Neut # (Auto) 2.4 (1.4-5.7) K/uL Lymph # (Auto) 7.3 H (0.6-2.4) K/uL [place] # (Auto) 0.8 (0.0-0.8) K/uL Eos # (Auto) 0.2 (0.0-0.7) K/uL Baso # (Auto) 0.0 (0.0-0.1) K/uL Nucleated RBC % 0.0 /100WBC Nucleated RBCs # 0 K/uL INR 1.05 D-Dimer, Quantitative < 0.19 (0.0-0.50) mg/L FEU Sodium 143 (136-145) mmol/L Potassium 2.9 L (3.5-5.1) mmol/L Chloride 103 (98-107) mmol/L Carbon Dioxide 26.4 (21.0-32.0) mmol/L BUN 19 H (7.0-18.0) mg/dL Creatinine 1.0 (0.6-1.0) mg/dL Est Cr Clr Drug Dosing 79.81 mL/min Estimated GFR (MDRD) > 60.0 ml/min Glucose 101 (74-106) mg/dL Calcium 9.3 (8.5-10.1) mg/dL Total Bilirubin 0.8 (0.2-1.0) mg/dL AST 15 (15-37) IU/L ALT 16 (14-63) IU/L Alkaline Phosphatase 52 (46-116) U/L Troponin I < 0.050 (0.000-0.056) ng/mL Total Protein 7.5 (6.4-8.2) g/dL Albumin 4.0 (3.4-5.0) g/dL Globulin 3.5 (2.6-4.0) g/dL Albumin/Globulin Ratio 1.1 (0.9-1.6) Urine Color Urine Appearance Urine pH (5.0-8.0) Ur Specific [place] (1.001-1.035) Urine Protein (NEGATIVE) mg/dL Urine Glucose (UA) (NEGATIVE) mg/dL Urine Ketones (NEGATIVE) mg/dL Urine Occult Blood (NEGATIVE) Urine Nitrite (NEGATIVE) Urine Bilirubin (NEGATIVE) Urine Urobilinogen (<2.0) EU/dL Ur Leukocyte Esterase (NEGATIVE) Urine RBC (0-2/HPF) Urine WBC (0-5/HPF) Ur Epithelial Cells (NONE-FEW) Urine Bacteria (NEGATIVE) Urine HCG, Qual (NEGATIVE) 07/29/18 07/29/18 Range/Units 23:22 23:25 WBC (4.0-11.0) K/uL RBC (4.30-5.90) M/uL Hgb (12.0-16.0) g/dL Hct (36.0-46.0) % MCV (80.0-98.0) fL MCH (27.0-32.0) pg MCHC (31.0-37.0) g/dL RDW Std Deviation (28.0-62.0) fl RDW Coeff of Fely (11.0-15.0) % Plt Count (150-400) K/uL MPV (7.40-12.00) fL Neut % (Auto) (48.0-80.0) % Lymph % (Auto) (16.0-40.0) % [place] % (Auto) (0.0-15.0) % Eos % (Auto) (0.0-7.0) % Baso % (Auto) (0.0-1.5) % Neut # (Auto) (1.4-5.7) K/uL Lymph # (Auto) (0.6-2.4) K/uL [place] # (Auto) (0.0-0.8) K/uL Eos # (Auto) (0.0-0.7) K/uL Baso # (Auto) (0.0-0.1) K/uL Nucleated RBC % /100WBC Nucleated RBCs # K/uL INR D-Dimer, Quantitative (0.0-0.50) mg/L FEU Sodium (136-145) mmol/L Potassium (3.5-5.1) mmol/L Chloride (98-107) mmol/L Carbon Dioxide (21.0-32.0) mmol/L BUN (7.0-18.0) mg/dL Creatinine (0.6-1.0) mg/dL Est Cr Clr Drug Dosing mL/min Estimated GFR (MDRD) ml/min Glucose (74-106) mg/dL Calcium (8.5-10.1) mg/dL Total Bilirubin (0.2-1.0) mg/dL AST (15-37) IU/L ALT (14-63) IU/L Alkaline Phosphatase (46-116) U/L Troponin I (0.000-0.056) ng/mL Total Protein (6.4-8.2) g/dL Albumin (3.4-5.0) g/dL Globulin (2.6-4.0) g/dL Albumin/Globulin Ratio (0.9-1.6) Urine Color YELLOW Urine Appearance CLEAR Urine pH 6.0 (5.0-8.0) Ur Specific [place] 1.015 (1.001-1.035) Urine Protein NEGATIVE (NEGATIVE) mg/dL Urine Glucose (UA) NEGATIVE (NEGATIVE) mg/dL Urine Ketones NEGATIVE (NEGATIVE) mg/dL Urine Occult Blood TRACE-INTACT H (NEGATIVE) Urine Nitrite NEGATIVE (NEGATIVE) Urine Bilirubin NEGATIVE (NEGATIVE) Urine Urobilinogen 0.2 (<2.0) EU/dL Ur Leukocyte Esterase TRACE H (NEGATIVE) Urine RBC 0-1 (0-2/HPF) Urine WBC 0-2 (0-5/HPF) Ur Epithelial Cells FEW (NONE-FEW) Urine Bacteria FEW (NEGATIVE) Urine HCG, Qual NEGATIVE (NEGATIVE) Meds: Medications Generic Name Dose Route Start Last Admin Trade Name Freq PRN Reason Stop Dose Admin Sodium Chloride 10 ml 07/29/18 23:06 Saline Flush FLUSH ASDIRECTED PRN Keep Vein Open Sodium Chloride 2.5 ml 07/29/18 23:06 Saline Flush FLUSH ASDIRECTED PRN Keep Vein Open Discontinued Medications Generic Name Dose Route Start Last Admin Trade Name Freq PRN Reason Stop Dose Admin Sodium Chloride 1,000 mls @ 999 mls/hr 07/30/18 00:07 07/30/18 00:12 Normal Saline IV 07/30/18 01:07 999 mls/hr .Bolus ONE Administration Potassium Chloride 40 meq 07/30/18 00:07 07/30/18 00:12 Potassium Chloride PO 07/30/18 00:08 40 meq ONETIME ONE Administration Departure - Departure Time of Disposition: 01:35 Disposition: Home, Self-Care 01 Condition: Good Clinical Impression: Atypical chest pain, Hypokalemia - Discharge Information Additional Instructions: The following information is given to patients seen in the emergency department who are being discharged to home. This information is to outline your options for follow-up care. We provide all patients seen in our emergency department with a follow-up referral. The need for follow-up, as well as the timing and circumstances, are variable depending upon the specifics of your emergency department visit. If you don't have a primary care physician on staff, we will provide you with a referral. We always advise you to contact your personal physician following an emergency department visit to inform them of the circumstance of the visit and for follow-up with them and/or the need for any referrals to a consulting specialist. The emergency department will also refer you to a specialist when appropriate. This referral assures that you have the opportunity for followup care with a specialist. All of these measure are taken in an effort to provide you with optimal care, which includes your followup. Under all circumstances we always encourage you to contact your private physician who remains a resource for coordinating your care. When calling for followup care, please make the office aware that this follow-up is from your recent emergency room visit. If for any reason you are refused follow-up, please contact the [facility] emergency department at and asked to speak to the emergency department charge nurse. K-Dur as prescribed push fluids Motrin/Tylenol as directed follow up primary medical doctor as needed as discussed return as needed as discussed[] - My Orders Last 24 Hours: My Active Orders 07/29/18 23:06 EKG Documentation Completion [RC] STAT Sodium Chloride 0.9% [Saline Flush] 10 ml FLUSH ASDIRECTED PRN Sodium Chloride 0.9% [Saline Flush] 2.5 ml FLUSH ASDIRECTED PRN Saline Lock Insert [OM.PC] Stat 07/29/18 23:22 CULTURE URINE [RM] Stat 07/30/18 00:56 EKG 12 Lead [EKG Documentation Completion] [RC] STAT - Assessment/Plan Last 24 Hours: My Active Orders 07/29/18 23:06 EKG Documentation Completion [RC] STAT Sodium Chloride 0.9% [Saline Flush] 10 ml FLUSH ASDIRECTED PRN Sodium Chloride 0.9% [Saline Flush] 2.5 ml FLUSH ASDIRECTED PRN Saline Lock Insert [OM.PC] Stat 07/29/18 23:22 CULTURE URINE [RM] Stat 07/30/18 00:56 EKG 12 Lead [EKG Documentation Completion] [RC] STAT
[2018-07-29] MEDS ORDERED: Sodium Chloride 0.9% 2.5 ML Syringe FLUSH PRN (23:06)
[2018-07-29] MEDS ORDERED: Sodium Chloride 0.9% 10 ML Syringe FLUSH PRN (23:06)
[2018-07-29 23:49] LABS: CHLORIDE,CL 103 mmol/L (98-107); SODIUM,NA 143 mmol/L (136-145)
[2018-07-30] MEDS ORDERED: Potassium Chloride 10% 20 MEQ/15 ML Soln 30 ML UD Cup PO ONE (00:07)
[2018-07-30] MEDS ORDERED: Sodium Chloride 0.9% 1,000 ML IV ONE (00:07)
--- NOTE | 2018-07-30 00:56 | CR ---
Indication: Chest pain Technique: Chest 1 view Comparison: July 18, 2018 Findings/Impression: Cardiovascular and mediastinum: Heart size and vasculature are normal in caliber and appearance. Mediastinum is within normal limits. Lungs and pleural space: Lungs are clear. No sign of infiltrate or mass. No sign of pleural effusion. No pneumothorax. Bones and soft tissues: No significant findings. Dictated by Zelda Allred MD @ Jul 30 2018 12:54AM Signed by Dr. Zelda Allred @ Jul 30 2018 12:55AM
[2018-07-30] MEDS ORDERED: Acetaminophen 500 MG Tab PO ONE (01:51)
[2018-07-30] MEDS ORDERED: Acetaminophen 500 MG Tab ONE (01:51)
[2018-07-30 01:55] VITALS: BP 105/63
== END 2018-07-30 01:54 | disposition home or self-care (01) ==
LOC: MW.ED 23:01
DX: R07.89 Other chest pain (principal); M54.6 Pain in thoracic spine; E87.6 Hypokalemia; Z88.6 Allergy status to analgesic agent
CPT/HCPCS: 36415; 71045; 80053; 81001; 81025; 84484; 85025; 85379; 85610; 87086; 93005; 96360; 99285; A9270; J7040; 99284

== ENCOUNTER 2020-06-23 08:34 | Day surgery (SDC) | payer OTHER ==
[~2020-06-23 08:34] MED LIST: Glycopyrrolate 0.2 MG/ML SDV ONE; Lactated Ringers 1,000 ML IV SCH; Lidocaine 2% 5 ML SDV ONE; Midazolam 1 MG/ML 2 ML SDV ONE; Propofol 200 MG/20 ML SDV ONE
--- NOTE | 2020-06-23 09:09 | PCM.PREANE ---
Preanesthetic Assessment - Anesthesia/Transfusion/Family Hx Anesthesia History: Prior Anesthesia Without Reaction Family History of Anesthesia Reaction: No Transfusion History: No Prior Transfusion(s) Intubation History: Unknown - Review of Systems General: No Symptoms Pulmonary: No Symptoms Cardiovascular: No Symptoms Gastrointestinal: Abdominal Pain Neurological: No Symptoms Other: Reports: None - Physical Assessment Vital Signs: Last Vital Signs Temp 36.2 C 06/23/20 08:53 Pulse 113 H 06/23/20 08:53 Resp 15 06/23/20 08:53 BP 122/80 06/23/20 08:53 Pulse Ox 100 06/23/20 08:53 Height: 5 ft 7 in Weight: 68.492 kg ASA Class: 2 Mental Status: Alert & Oriented x3 Airway Class: Mallampati = 1 Dentition: Reports: Normal Dentition Thyro-Mental Finger Breadths: 3 Mouth Opening Finger Breadths: 3 ROM/Head Extension: Full Lungs: Clear to Auscultation, Normal Respiratory Effort Cardiovascular: Regular Rate, Regular Rhythm - Lab Values: Laboratory Last Values Urine HCG, Qual NEGATIVE (NEGATIVE) 06/23/20 08:47 - Allergies Allergies/Adverse Reactions: Allergies Allergy/AdvReac Type Severity Reaction Status Date / Time ibuprofen Allergy Tachycardia Verified 06/17/20 09:08 lactose Allergy Stomach Verified 06/17/20 09:09 Upset - Blood Blood Available: No - Anesthesia Plan Pre-Op Medication Ordered: None - Acknowledgements Anesthesia Type Planned: MAC Pt an Appropriate Candidate for the Planned Anesthesia: Yes Alternatives and Risks of Anesthesia Discussed w Pt/Guardian: Yes Pt/Guardian Understands and Agrees with Anesthesia Plan: Yes PreAnesthesia Questionnaire - Past Health History Medical/Surgical History: Denies Medical/Surgical History HEENT History: Reports: None Cardiovascular History: Reports: None Respiratory History: Reports: None Gastrointestinal History: Reports: Gastritis, GERD, Hepatitis, Helicobacter Pylori Other Gastrointestinal History: H.Pylori, heartburn, chronic hepatitis B, states levels are low and requires no treatment at this time Genitourinary History: Reports: None 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: Musculoskeletal History: Reports: None Neurological History: Reports: None Psychiatric History: Reports: None Endocrine/Metabolic History: Reports: None Hematologic History: Reports: None Other Immunologic History: Hep B positive, states she sees a doctor in [place] yearly to check her liver, states her levels are low and has not been on medication for this Oncologic (Cancer) History: Reports: None Dermatologic History: Reports: None - Infectious Disease History Infectious Disease History: Reports: Hepatitis B - Past Surgical History Head Surgeries/Procedures: Reports: None HEENT Surgical History: Reports: None Cardiovascular Surgical History: Reports: None Respiratory Surgical History: Reports: None GI Surgical History: Reports: None Female Surgical History: Reports: Section (x2) Endocrine Surgical History: Reports: None Neurological Surgical History: Reports: None Musculoskeletal Surgical History: Reports: None Oncologic Surgical History: Reports: None Dermatological Surgical History: Reports: None - SUBSTANCE USE Tobacco Use Status *Q: Never Tobacco User - HOME MEDS Home Medications: Home Meds Omeprazole 40 mg PO DAILY 06/17/20 [History] - CURRENT (IN HOUSE) MEDS Current Meds: Current Medications Lactated Ringer's (Ringers, Lactated) 1,000 mls @ 125 mls/hr IV ASDIRECTED JAY Discontinued Medications Glycopyrrolate (Glycopyrrolate 0.2 Mg/Ml Sdv) Confirm Administered Dose 0.2 mg . ROUTE .STK-MED ONE Stop: 06/23/20 07:07 Lidocaine (Lidocaine 2% 5 Ml Sdv) Confirm Administered Dose 5 ml .ROUTE .STK-MED ONE Stop: 06/23/20 07:07 Midazolam HCl (Midazolam 1 Mg/Ml 2 Ml Sdv) Confirm Administered Dose 2 mg .ROUTE .STK-MED ONE Stop: 06/23/20 07:07 Propofol (Propofol 200 Mg/20 Ml Sdv) Confirm Administered Dose 200 mg .ROUTE .STK-MED ONE Stop: 06/23/20 07:07
--- NOTE | 2020-06-23 09:32 | PCM.OPNOTE ---
- General Post-Op/Procedure Note Date of Surgery/Procedure: 06/23/20 Operative Procedure(s): egd w bx Findings: see [id number] Pre Op Diagnosis: abd bloating Post-Op Diagnosis: Same Anesthesia Technique: Moderate Sedation Primary Surgeon: Tahir Zamora Pathology: sent Condition: Good
--- NOTE | 2020-06-23 09:50 | PCM.POSTAN ---
POST ANESTHESIA ASSESSMENT - MENTAL STATUS Mental Status: Alert, Oriented - VITAL SIGNS Vital Signs: Last Vital Signs Temp 36.2 C 06/23/20 08:53 Pulse 93 06/23/20 09:45 Resp 20 06/23/20 09:45 BP 118/72 06/23/20 09:45 Pulse Ox 100 06/23/20 09:45 - RESPIRATORY Respiratory Status: Respiratory Rate WNL, Airway Patent, O2 Saturation Stable - CARDIOVASCULAR CV Status: Pulse Rate WNL, Blood Pressure Stable - GASTROINTESTINAL GI Status: No Symptoms - PAIN Pain Score: 0 - POST OP HYDRATION Hydration Status: Adequate & Stable - OBSERVATIONS Free Text/Narrative:: No anesthesia problems
[2020-06-23 09:59] VITALS: BP 115/80; PULSE 96
--- NOTE | 2020-06-23 10:10 | PCM48HPAN ---
Post Anesthesia Note - EVALUATION WITHIN 48HRS OF ANESTHETIC Vital Signs in Normal Range: Yes Patient Participated in Evaluation: Yes Respiratory Function Stable: Yes Airway Patent: Yes Cardiovascular Function Stable: Yes Hydration Status Stable: Yes Pain Control Satisfactory: Yes Nausea and Vomiting Control Satisfactory: Yes Mental Status Recovered: Yes Vital Signs: Last Vital Signs Temp 36.6 C 06/23/20 09:50 Pulse 96 06/23/20 09:50 Resp 14 06/23/20 09:50 BP 115/80 06/23/20 09:50 Pulse Ox 100 06/23/20 09:50 - COMMENTS/OBSERVATIONS Free Text/Narrative:: No anesthesia problems
--- NOTE | 2020-06-23 10:33 | OR ---
SURGEON: Tahir Zamora MD DATE OF PROCEDURE: 06/23/2020 PREOPERATIVE DIAGNOSES: Gastroesophageal reflux disease and abdominal bloating. POSTOPERATIVE DIAGNOSES: Gastroesophageal reflux disease and abdominal bloating. PROCEDURE PERFORMED: Esophagogastroduodenoscopy with biopsy. EGD with biopsy: The patient was taken to the endoscopy room, and with the HAND CLOTH CUTTER, Diprivan was administered. A well-lubricated EGD scope was gently inserted through the oropharynx, down the esophagus, passing through the gastroesophageal junction, into the stomach. The mucosa was examined upon the passage. Any etiology will be noted. Once in the stomach, we continued to advance to the distal antrum, passed through the pylorus into the second portion of the duodenum. Again, the mucosa was examined for any abnormality and etiology. The scope was then retrieved back to the stomach and then retroflexed to look at the fundus of the stomach. If a biopsy was indicated, we will biopsy the antrum, body, and gastroesophageal junction. The air will be sucked out while the scope is retrieved to reduce the patient's discomfort. The patient tolerated the procedure well. There were no intraoperative complications. Dr. Zamora was present through the whole procedure. Prior to surgery, a time-out had been called, the patient identified, procedure identified and antibiotic administered. PRIMARY SURGEON: Tahir Zamora MD COMPLICATIONS: None. FINDINGS: 1. The patient easily sedated with HAND CLOTH CUTTER and Diprivan, the patient is present soundly snoring. 2. Oropharynx and proximal esophagus are free of disease, stricture, or inflammation. Distal esophagus shows mild salmon-colored change, suggests some acid reflux, mild. Stomach rugae are normal in appearance. There is no food, bile, blood, or sangeeta ulcer observed. Antrum looks fine. Duodenum looks grossly normal. Retroflexed look at the fundus of the stomach, there is no hiatal hernia. Biopsy done at antrum, body, GE junction at 40 and sucked out the gas while scope pulling out. The patient tolerated the procedure well. There were no intraoperative complications. Dr. Zamora present for whole procedure. JOSE G / TORRES /[id number] EL
== END 2020-06-23 10:20 | disposition home or self-care (01) ==
LOC: MW.SDS 08:34
PROVIDERS: ATTEND Surgery
DX: K29.50 Unspecified chronic gastritis without bleeding (principal); K21.9 Gastro-esophageal reflux disease without esophagitis; B18.1 Chronic viral hepatitis B without delta-agent; Z88.8 Allergy status to other drugs, medicaments and biological substances; Z79.899 Other long term (current) drug therapy
CPT/HCPCS: 43239; 81025; 88305; 88312; J2250; J2704; J3490; J7120; 00731

== ENCOUNTER 2020-07-16 08:29 | Day surgery (SDC) | payer OTHER, SELFPAY ==
[~2020-07-16 08:29] MED LIST changes: -Glycopyrrolate 0.2 MG/ML SDV ONE; -Lidocaine 2% 5 ML SDV ONE; -Midazolam 1 MG/ML 2 ML SDV ONE; -Propofol 200 MG/20 ML SDV ONE
--- NOTE | 2020-07-16 09:12 | PCM.PREANE ---
Preanesthetic Assessment - Anesthesia/Transfusion/Family Hx Anesthesia History: Prior Anesthesia Without Reaction Family History of Anesthesia Reaction: No Transfusion History: No Prior Transfusion(s) Intubation History: Unknown - Review of Systems General: No Symptoms Pulmonary: No Symptoms Cardiovascular: No Symptoms Gastrointestinal: No Symptoms Neurological: No Symptoms Other: Reports: None - Physical Assessment NPO Status Date: 07/16/20 NPO Status Time: 00:01 Height: 5 ft 7 in Weight: 151 lb ASA Class: 2 Mental Status: Alert & Oriented x3 Airway Class: Mallampati = 2 Dentition: Reports: Normal Dentition ROM/Head Extension: Full Lungs: Clear to Auscultation, Normal Respiratory Effort Cardiovascular: Regular Rate, Regular Rhythm - Allergies Allergies/Adverse Reactions: Allergies Allergy/AdvReac Type Severity Reaction Status Date / Time ibuprofen Allergy Tachycardia Verified 07/14/20 09:14 lactose Allergy Stomach Verified 07/14/20 09:14 Upset - Anesthesia Plan Pre-Op Medication Ordered: None - Acknowledgements Anesthesia Type Planned: General Anesthesia Pt an Appropriate Candidate for the Planned Anesthesia: Yes Alternatives and Risks of Anesthesia Discussed w Pt/Guardian: Yes Pt/Guardian Understands and Agrees with Anesthesia Plan: Yes Additional Comments: npo after mn hoa prn rx no cv problems tob none etoh none found out she had Hep B 5 years ago during her 5th - pt states she is not infective and has had no liver problems par no questions PreAnesthesia Questionnaire - Past Health History Medical/Surgical History: Denies Medical/Surgical History HEENT History: Reports: None Cardiovascular History: Reports: None Respiratory History: Reports: None Gastrointestinal History: Reports: GERD, Hepatitis, Helicobacter Pylori Other Gastrointestinal History: hx of chronic Hepatitis B Genitourinary History: Reports: None 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: Musculoskeletal History: Reports: None Neurological History: Reports: None Psychiatric History: Reports: None Endocrine/Metabolic History: Reports: None Hematologic History: Reports: None Immunologic History: Reports: None Other Immunologic History: Hep B positive, states she sees a doctor in [place] yearly to check her liver, states her levels are low and has not been on medication for this Oncologic (Cancer) History: Reports: None Dermatologic History: Reports: None - Infectious Disease History Infectious Disease History: Reports: Hepatitis B - Past Surgical History Head Surgeries/Procedures: Reports: None HEENT Surgical History: Reports: None Cardiovascular Surgical History: Reports: None Respiratory Surgical History: Reports: None GI Surgical History: Reports: None Female Surgical History: Reports: Section Endocrine Surgical History: Reports: None Neurological Surgical History: Reports: None Musculoskeletal Surgical History: Reports: None Oncologic Surgical History: Reports: None - SUBSTANCE USE Tobacco Use Status *Q: Never Tobacco User Recreational Drug Use History: No - HOME MEDS Home Medications: Home Meds Omeprazole 40 mg PO DAILY 06/17/20 [History] - CURRENT (IN HOUSE) MEDS Current Meds: Current Medications Lactated Ringer's (Ringers, Lactated) 1,000 mls @ 125 mls/hr IV ASDIRECTED JAY
[2020-07-16] MEDS ORDERED: fentaNYL 100 MCG/2 ML SDV ONE ×2 (09:42→12:47)
[2020-07-16] MEDS ORDERED: Propofol 200 MG/20 ML SDV ONE (09:42)
[2020-07-16] MEDS ORDERED: Midazolam 1 MG/ML 2 ML SDV ONE (09:42)
[2020-07-16] MEDS ORDERED: Rocuronium Bromide 50 MG/5 ML Syringe ONE (09:43)
[2020-07-16] MEDS ORDERED: Succinylcholine/Sod PF 100 MG/5 ML SYRINGE IV ONE (09:43)
[2020-07-16] MEDS ORDERED: Ondansetron 4 MG/2 ML SDV ONE (09:46)
[2020-07-16] MEDS ORDERED: Bupivacaine 25%/EPINEPHrine/PF 30 ML ONE (10:02)
[2020-07-16] MEDS ORDERED: Sugammadex Sodium 200 MG/2 ML VIAL ONE (12:09)
[2020-07-16] MEDS ORDERED: Glycopyrrolate 0.2 MG/ML SDV ONE (12:15)
--- NOTE | 2020-07-16 12:38 | PCM.OPNOTE ---
- General Post-Op/Procedure Note Date of Surgery/Procedure: 07/16/20 Operative Procedure(s): ventral hernia repair Findings: large ventral hernia, repair using component separation, no mesh used; [id number] Pre Op Diagnosis: ventral hernia Post-Op Diagnosis: Same Anesthesia Technique: General ET Tube Primary Surgeon: Tahir Zamora Pathology: sent Complications: None Condition: Good
[2020-07-16] MEDS ORDERED: Acetaminophen 1,000 MG in Premix Bag 1 BAG IV PRN (12:44)
[2020-07-16] MEDS: fentaNYL 100 MCG/2 ML SDV IVPUSH PRN ×2 (12:49→13:00)
--- NOTE | 2020-07-16 13:11 | PCM.POSTAN ---
POST ANESTHESIA ASSESSMENT - MENTAL STATUS Mental Status: Alert (no anesthetic problems), Oriented - VITAL SIGNS Vital Signs: Last Vital Signs Temp 98.1 F 07/16/20 12:29 Pulse 125 H 07/16/20 13:04 Resp 18 07/16/20 13:04 BP 124/56 L 07/16/20 13:04 Pulse Ox 99 07/16/20 13:04 - RESPIRATORY Respiratory Status: Respiratory Rate WNL, Airway Patent, O2 Saturation Stable - CARDIOVASCULAR CV Status: Pulse Rate WNL, Blood Pressure Stable - GASTROINTESTINAL GI Status: No Symptoms - POST OP HYDRATION Hydration Status: Adequate & Stable
--- NOTE | 2020-07-16 13:52 | PCM48HPAN ---
Post Anesthesia Note - EVALUATION WITHIN 48HRS OF ANESTHETIC Vital Signs in Normal Range: Yes Patient Participated in Evaluation: Yes Respiratory Function Stable: Yes Airway Patent: Yes Cardiovascular Function Stable: Yes Hydration Status Stable: Yes Pain Control Satisfactory: Yes Nausea and Vomiting Control Satisfactory: Yes Mental Status Recovered: Yes Vital Signs: Last Vital Signs Temp 98.1 F 07/16/20 12:29 Pulse 125 H 07/16/20 13:04 Resp 18 07/16/20 13:04 BP 124/56 L 07/16/20 13:04 Pulse Ox 99 07/16/20 13:04
[2020-07-16 14:59] VITALS: BP 109/59; PULSE 94
--- NOTE | 2020-07-16 20:30 | OR ---
SURGEON: Tahir Zamora MD DATE OF PROCEDURE: 07/16/2020 PREOPERATIVE DIAGNOSIS: Large ventral hernia. POSTOPERATIVE DIAGNOSIS: Large ventral hernia. PROCEDURE PERFORMED: Hernia repair with component separation. COMPLICATIONS: None. FINDINGS: There is an umbilical hernia about the size of 2 x 3 cm on CAT scan. With her young age and her redundant abdominal wall, a component separation repair was done to avoid placing a mesh. DESCRIPTION OF PROCEDURE: The patient was taken to the operating room and placed in supine position. Upon induction of general endotracheal anesthesia, the patient's abdomen was prepped and draped in a sterile fashion. Time-out was called. The patient was identified. Procedure was identified. Antibiotic given. Procedure then started. A piece of Ioban was applied prophylactically. After assessment of appropriate landmarks, using a skin scalpel a low midline incision. The short midline incision beveled to the left of the umbilicus was made, which carefully entered the hernia as bowel was seen to be in the hernia and after delineating the hernia boundary, it was determined that the hernia , although small, 2 x 3 cm, but it is possible to put a mesh or not to put a mesh and with the patient's young age and family not finished, a piece of mesh would be difficult for her. It was determined to do a component separation, open the subcutaneous fat all the way to the rectus muscle and then a relaxing cut on the anterior fascia was made on top of the muscle and similar procedure has been done on the other side rectus muscle. Another reason for the component separation is because the patient's fascia is very weak, it is almost paper thin. Apparently, the patient does not seem to exercise, so her fascia is not usable all the way down to the midline border of the rectus muscle and that is the reason to do component separation. Then, using a Eileen to put the two boundaries together, there was absolutely no tension and the hernia was then repaired using a 0 Ethibond, simple interrupted, and the subcutaneous tissues using 3-0 Vicryl followed with skin walter. This was then followed with appropriate dressing. The patient was then awakened, transferred to Recovery in hemodynamically stable condition. The patient tolerated the procedure well. There were no intraoperative complications. Dr. Zamora was present through the whole procedure. JOSE G / TORRES /[id number]
== END 2020-07-16 14:35 | disposition home or self-care (01) ==
LOC: MW.SDS 08:29
PROVIDERS: ATTEND Surgery
DX: K42.9 Umbilical hernia without obstruction or gangrene (principal); K21.9 Gastro-esophageal reflux disease without esophagitis; Z79.899 Other long term (current) drug therapy; B18.1 Chronic viral hepatitis B without delta-agent; Z88.8 Allergy status to other drugs, medicaments and biological substances
CPT/HCPCS: 49585; J0131; J0330; J0690; J2250; J2405; J2704; J3010; J3490; J7120; 00750; 88302

== ENCOUNTER 2022-03-14 06:55 | Emergency (ER) | payer BC ==
[2022-03-14 07:05] VITALS: BP 119/67; PULSE 103
[2022-03-14 07:51] LABS: CORONAVIRUS COVID-19 NAA NEGATIVE (NEGATIVE); INFLUENZA A NAA POSITIVE (NEGATIVE); INFLUENZA B NAA NEGATIVE (NEGATIVE)
== END 2022-03-14 08:08 | disposition home or self-care (01) ==
LOC: MW.ED 06:55
DX: R05.1 Acute cough (principal); K21.9 Gastro-esophageal reflux disease without esophagitis; Z88.6 Allergy status to analgesic agent; Z91.011 Allergy to milk products; Z79.899 Other long term (current) drug therapy; Z20.822 Contact with and (suspected) exposure to COVID-19
CPT/HCPCS: 0240U; 99283

== ENCOUNTER 2022-05-30 14:15 | Observation (INO) | payer BC ==
[2022-05-30] MEDS ORDERED: Iopamidol 755 MG/ML 500 ML Multipack Bottle IVPUSH ONE (14:59)
[2022-05-30 15:18] LABS: CARBON DIOXIDE,CO2 26.8 mmol/L (21.0-32.0)
[2022-05-30 16:13] LABS: CARBON DIOXIDE,CO2 30.1 mmol/L (21.0-32.0); POTASSIUM,K 3.3 mmol/L (3.5-5.1)
[2022-05-30] MEDS ORDERED: Iopamidol 755 MG/ML 500 ML Multipack Bottle IVPUSH STA (17:01)
[2022-05-30] MEDS ORDERED: Sodium Chloride 0.9% 20 ML SDV IV PRN (19:55)
[2022-05-30] MEDS ORDERED: Sodium Chloride 0.9% 2.5 ML Syringe FLUSH PRN (19:55)
[2022-05-30] MEDS ORDERED: Ondansetron 4 MG/2 ML SDV IVPUSH PRN (19:55)
[2022-05-30] MEDS ORDERED: Sodium Chloride 0.9% 10 ML Syringe FLUSH PRN (19:55)
[2022-05-30] MEDS ORDERED: Acetaminophen 325 MG Tab PO PRN (19:55)
[2022-05-30] MEDS ORDERED: Albuterol 0.083% 2.5 MG/3 ML Neb Soln NEB PRN (20:00)
[2022-05-30] MEDS ORDERED: Potassium Chloride 20 MEQ Tab.ER PO ONE (21:41)
[2022-05-31 07:58] LABS: CARBON DIOXIDE,CO2 26.6 mmol/L (21.0-32.0); POTASSIUM,K 3.6 mmol/L (3.5-5.1)
[2022-05-31 13:10] VITALS: BP 110/72; PULSE 83
== END 2022-05-31 15:02 | disposition home or self-care (01) ==
LOC: MW.ED 14:15 → UNDOADMIN 18:55 → INTOOBSV 18:55 → MW.MS 18:55
PROVIDERS: ADMIT Surgery; ATTEND Surgery
DX: R07.9 Chest pain, unspecified (principal); M54.50 Low back pain, unspecified; K21.9 Gastro-esophageal reflux disease without esophagitis; Z98.890 Other specified postprocedural states; Z88.6 Allergy status to analgesic agent; Z86.16 Personal history of COVID-19; Z20.822 Contact with and (suspected) exposure to COVID-19
CPT/HCPCS: 36415; 70450; 70450-26; 70498; 70498-26; 71046; 71046-26; 71275; 71275-26; 80048; 80053; 82330; 83735; 83880; 84484; 85025; 93005; 93306; 99285; A9270-GY; G0378; Q9967; U0002

== ENCOUNTER 2023-04-23 11:21 | Emergency (ER) | payer BC ==
[2023-04-23] MEDS ORDERED: Ondansetron 4 MG/2 ML SDV IVPUSH ONE (12:38)
[2023-04-23] MEDS ORDERED: Sodium Chloride 0.9% 1,000 ML IV ONE (12:38)
[2023-04-23 13:03] LABS: BASOPHILS ABSOLUTE AUTO 0.03 K/uL (0.00-0.20); BASOPHILS PERCENT AUTO 0.6 % (0.0-1.0); EOSINOPHILS ABSOLUTE AUTO 0.08 K/uL (0.00-0.45); EOSINOPHILS PERCENT AUTO 1.5 % (0.0-6.0); HEMATOCRIT 41.6 % (37.0-47.0); HEMOGLOBIN 13.8 g/dL (12.0-16.0); IMMATURE GRAN ABSOLUTE AUTO 0.01 K/uL (0.00-0.05); IMMATURE GRAN PERCENT AUTO 0.2 % (0.0-0.4); LYMPHOCYTES ABSOLUTE AUTO 2.48 K/uL (1.00-4.80); MEAN CORPUSCULAR HEMOGLOBIN 30.8 pg (28.0-32.0); MEAN CORPUSCULAR HGB CONC 33.2 g/dL (32.0-36.0); MEAN CORPUSCULAR VOLUME 92.9 fL (83.0-99.0); MEAN PLATELET VOLUME 11.7 fL (9.4-12.3); MONOCYTES ABSOLUTE AUTO 0.51 K/uL (0.00-0.80); MONOCYTES PERCENT AUTO 9.9 % (0.0-8.0); NEUTROPHILS ABSOLUTE AUTO 2.06 K/uL (1.80-7.70); NEUTROPHILS PERCENT AUTO 39.8 % (41.0-71.0); PLATELET COUNT,PLT 188 K/uL (150-400); RED BLOOD CELL COUNT 4.48 M/uL (4.10-5.30); WHITE BLOOD CELL COUNT,WBC 5.17 K/uL (3.9-11.3)
[2023-04-23] MEDS ORDERED: Alum Hydro/Mag Hydro/Simeth XS 15 ML, Metoclopramide 5 MG, Lidocaine 2% 5 ML PO ONE ×3 (13:05)
[2023-04-23] MEDS ORDERED: Famotidine 20 MG/2 ML SDV IVPUSH ONE (13:05)
[2023-04-23 13:32] LABS: ALBUMIN 3.8 g/dL (3.4-5.0); BILIRUBIN TOTAL 0.5 mg/dL (0.2-1.0); CALCIUM 9.4 mg/dL (8.5-10.1); CARBON DIOXIDE,CO2 28.3 mmol/L (21.0-32.0); CREATININE 0.9 mg/dL (0.6-1.0); EST CRCL DRUG DOSING (CG) 78.21 mL/min; POTASSIUM,K 4.5 mmol/L (3.5-5.1); PROTEIN TOTAL,TP 7.7 g/dL (6.4-8.2)
[2023-04-23 13:44] LABS: APPEARANCE,URINE SLT CLOUDY; BILIRUBIN,URINE NEGATIVE (NEGATIVE); COLOR,URINE YELLOW; GLUCOSE,URINE NEGATIVE (NEGATIVE); KETONES,URINE NEGATIVE (NEGATIVE); LEUKOCYTE ESTERASE,URINE SMALL (NEGATIVE); NITRITE,URINE NEGATIVE (NEGATIVE); OCCULT BLOOD,URINE LARGE (NEGATIVE); PROTEIN,URINE NEGATIVE (NEGATIVE); UROBILINOGEN,URINE 0.2 EU/dL (<2.0)
[2023-04-23 13:53] LABS: BACTERIA,URINE FEW (NEGATIVE); MUCUS,URINE LIGHT (NONE-MOD); RBC,URINE 50-60 (0-2/HPF); SQUAMOUS EPITHELIAL CELLS,UR FEW
[2023-04-23 20:28] VITALS: BP 115/74; PULSE 76
== END 2023-04-23 14:13 | disposition home or self-care (01) ==
LOC: MW.ED 11:21
DX: R10.13 Epigastric pain (principal); K21.9 Gastro-esophageal reflux disease without esophagitis; Z86.16 Personal history of COVID-19; Z91.011 Allergy to milk products; Z88.6 Allergy status to analgesic agent
CPT/HCPCS: 36415; 80053; 81001; 81025; 83690; 85025; 99284; A9270

== ENCOUNTER 2023-05-25 09:58 | Day surgery (SDC) | payer BC ==
[2023-05-25] MEDS ORDERED: Propofol 200 MG/20 ML SDV ONE ×3 (10:15→12:04)
[2023-05-25] MEDS ORDERED: Lidocaine 2% 5 ML SDV ONE (10:15)
[2023-05-25] MEDS ORDERED: fentaNYL 100 MCG/2 ML SDV ONE (10:16)
[2023-05-25] MEDS: Lactated Ringers 1,000 ML IV SCH (10:50)
[2023-05-25] MEDS ORDERED: Midazolam 1 MG/ML 2 ML SDV ONE (11:40)
[2023-05-25] MEDS ORDERED: Lactated Ringers 1,000 ML IV SCH (12:30)
[2023-05-25 13:17] VITALS: BP 131/76; PULSE 93
== END 2023-05-25 13:08 | disposition home or self-care (01) ==
LOC: MW.SDS 09:58
PROVIDERS: ATTEND Surgery
DX: K29.50 Unspecified chronic gastritis without bleeding (principal); K55.20 Angiodysplasia of colon without hemorrhage; R10.13 Epigastric pain; R19.4 Change in bowel habit; Z79.899 Other long term (current) drug therapy; Z91.011 Allergy to milk products; Z88.8 Allergy status to other drugs, medicaments and biological substances
CPT/HCPCS: 43239; 45380; 81025; J2250; J2704; J3010; J7120; 00813; J3490

== ENCOUNTER 2023-06-29 12:18 | Emergency (ER) | payer BC ==
[2023-06-29 12:30] LABS: BASOPHILS ABSOLUTE AUTO 0.04 K/uL (0.00-0.20); BASOPHILS PERCENT AUTO 0.7 % (0.0-1.0); EOSINOPHILS ABSOLUTE AUTO 0.07 K/uL (0.00-0.45); EOSINOPHILS PERCENT AUTO 1.2 % (0.0-6.0); HEMATOCRIT 42.3 % (37.0-47.0); HEMOGLOBIN 14.5 g/dL (12.0-16.0); LYMPHOCYTES ABSOLUTE AUTO 3.51 K/uL (1.00-4.80); LYMPHOCYTES PERCENT AUTO 59.3 % (24.0-44.0); MEAN CORPUSCULAR HEMOGLOBIN 31.2 pg (28.0-32.0); MEAN CORPUSCULAR HGB CONC 34.3 g/dL (32.0-36.0); MEAN PLATELET VOLUME 11.2 fL (9.4-12.3); MONOCYTES ABSOLUTE AUTO 0.52 K/uL (0.00-0.80); MONOCYTES PERCENT AUTO 8.8 % (0.0-8.0); NEUTROPHILS ABSOLUTE AUTO 1.78 K/uL (1.80-7.70); PLATELET COUNT,PLT 194 K/uL (150-400); RED BLOOD CELL COUNT 4.65 M/uL (4.10-5.30); WHITE BLOOD CELL COUNT,WBC 5.92 K/uL (3.9-11.3)
[2023-06-29] MEDS: cefTRIAXone 500 MG in Sodium Chloride 0.9% 50 ML IV ONE (12:49)
[2023-06-29] MEDS: metroNIDAZOLE/Normal Saline 500 MG in Premix Bag 1 BAG IV ONE (12:49)
[2023-06-29 13:00] LABS: CALCIUM 9.4 mg/dL (8.5-10.1); CARBON DIOXIDE,CO2 28.3 mmol/L (21.0-32.0); CREATININE 0.9 mg/dL (0.6-1.0); EST CRCL DRUG DOSING (CG) 84.79 mL/min; POTASSIUM,K 3.1 mmol/L (3.5-5.1)
[2023-06-29] MEDS: Iopamidol 755 MG/ML 500 ML Multipack Bottle IVPUSH STA (14:03)
[2023-06-29 14:55] VITALS: BP 121/71; PULSE 81
== END 2023-06-29 14:54 | disposition home or self-care (01) ==
LOC: MW.ED 12:18
DX: R93.5 Abnormal findings on diagnostic imaging of other abdominal regions, including retroperitoneum (principal); R10.31 Right lower quadrant pain; Z88.6 Allergy status to analgesic agent; Z91.011 Allergy to milk products; Z86.16 Personal history of COVID-19; Z75.8 Other problems related to medical facilities and other health care
CPT/HCPCS: 36415; 74177; 80048; 84703; 85025; 96365; 96368; 99284; J0696; J1836; J3490; Q9967

== ENCOUNTER 2023-09-03 01:09 | Emergency (ER) | payer BC ==
[2023-09-03 01:31] LABS: BASOPHILS ABSOLUTE AUTO 0.04 K/uL (0.00-0.20); BASOPHILS PERCENT AUTO 0.4 % (0.0-1.0); EOSINOPHILS ABSOLUTE AUTO 0.15 K/uL (0.00-0.45); EOSINOPHILS PERCENT AUTO 1.7 % (0.0-6.0); HEMATOCRIT 39.8 % (37.0-47.0); HEMOGLOBIN 13.5 g/dL (12.0-16.0); IMMATURE GRAN ABSOLUTE AUTO 0.02 K/uL (0.00-0.05); IMMATURE GRAN PERCENT AUTO 0.2 % (0.0-0.4); LYMPHOCYTES ABSOLUTE AUTO 4.88 K/uL (1.00-4.80); LYMPHOCYTES PERCENT AUTO 53.7 % (24.0-44.0); MEAN CORPUSCULAR HEMOGLOBIN 31.2 pg (28.0-32.0); MEAN CORPUSCULAR HGB CONC 33.9 g/dL (32.0-36.0); MEAN CORPUSCULAR VOLUME 91.9 fL (83.0-99.0); MEAN PLATELET VOLUME 11.4 fL (9.4-12.3); MONOCYTES ABSOLUTE AUTO 1.04 K/uL (0.00-0.80); MONOCYTES PERCENT AUTO 11.4 % (0.0-8.0); NEUTROPHILS ABSOLUTE AUTO 2.96 K/uL (1.80-7.70); NEUTROPHILS PERCENT AUTO 32.6 % (41.0-71.0); PLATELET COUNT,PLT 201 K/uL (150-400); RED BLOOD CELL COUNT 4.33 M/uL (4.10-5.30); WHITE BLOOD CELL COUNT,WBC 9.09 K/uL (3.9-11.3)
[2023-09-03 01:33] LABS: APPEARANCE,URINE CLEAR; BILIRUBIN,URINE NEGATIVE (NEGATIVE); COLOR,URINE YELLOW; GLUCOSE,URINE NEGATIVE (NEGATIVE); KETONES,URINE NEGATIVE (NEGATIVE); LEUKOCYTE ESTERASE,URINE NEGATIVE (NEGATIVE); NITRITE,URINE NEGATIVE (NEGATIVE); OCCULT BLOOD,URINE NEGATIVE (NEGATIVE); PROTEIN,URINE NEGATIVE (NEGATIVE)
[2023-09-03] MEDS: Sodium Chloride 0.9% 1,000 ML IV STA (01:47)
[2023-09-03] MEDS: Sodium Chloride 0.9% 10 ML Syringe FLUSH PRN (01:47)
[2023-09-03] MEDS: Sodium Chloride 0.9% 2.5 ML Syringe FLUSH PRN (01:47)
[2023-09-03 01:57] LABS: A/G RATIO 0.8 (0.9-1.6); ALBUMIN 3.2 g/dL (3.4-5.0); BILIRUBIN TOTAL 0.8 mg/dL (0.2-1.0); CALCIUM 8.4 mg/dL (8.5-10.1); CARBON DIOXIDE,CO2 27.7 mmol/L (21.0-32.0); CREATININE 0.8 mg/dL (0.6-1.0); EST CRCL DRUG DOSING (CG) 95.38 mL/min; POTASSIUM,K 3.2 mmol/L (3.5-5.1); PROTEIN TOTAL,TP 7.2 g/dL (6.4-8.2)
[2023-09-03 02:38] VITALS: BP 127/71
[2023-09-03 03:32] VITALS: PULSE 89
== END 2023-09-03 03:55 | disposition home or self-care (01) ==
LOC: MW.ED 01:09
DX: R10.32 Left lower quadrant pain (principal); Z91.011 Allergy to milk products; Z88.6 Allergy status to analgesic agent; Z75.8 Other problems related to medical facilities and other health care
CPT/HCPCS: 36415; 76801; 80053; 81003; 81025; 83690; 84702; 85025; 86900; 86901; 99284; J3490; J7030; 99283

== ENCOUNTER 2023-09-04 12:05 | Emergency (ER) | payer BC ==
[2023-09-04 12:36] LABS: BASOPHILS ABSOLUTE AUTO 0.03 K/uL (0.00-0.20); BASOPHILS PERCENT AUTO 0.3 % (0.0-1.0); EOSINOPHILS ABSOLUTE AUTO 0.09 K/uL (0.00-0.45); HEMOGLOBIN 13.8 g/dL (12.0-16.0); IMMATURE GRAN ABSOLUTE AUTO 0.01 K/uL (0.00-0.05); IMMATURE GRAN PERCENT AUTO 0.1 % (0.0-0.4); LYMPHOCYTES ABSOLUTE AUTO 2.55 K/uL (1.00-4.80); MEAN CORPUSCULAR HEMOGLOBIN 31.2 pg (28.0-32.0); MEAN CORPUSCULAR HGB CONC 33.7 g/dL (32.0-36.0); MEAN CORPUSCULAR VOLUME 92.8 fL (83.0-99.0); MEAN PLATELET VOLUME 11.5 fL (9.4-12.3); MONOCYTES ABSOLUTE AUTO 0.95 K/uL (0.00-0.80); MONOCYTES PERCENT AUTO 10.4 % (0.0-8.0); NEUTROPHILS ABSOLUTE AUTO 5.47 K/uL (1.80-7.70); NEUTROPHILS PERCENT AUTO 60.2 % (41.0-71.0); PLATELET COUNT,PLT 184 K/uL (150-400); RED BLOOD CELL COUNT 4.42 M/uL (4.10-5.30)
[2023-09-04] MEDS: Sodium Chloride 0.9% 1,000 ML IV ONE (12:37)
[2023-09-04 13:19] LABS: A/G RATIO 0.8 (0.9-1.6); ALBUMIN 3.3 g/dL (3.4-5.0); BILIRUBIN TOTAL 0.9 mg/dL (0.2-1.0); CALCIUM 8.9 mg/dL (8.5-10.1); CARBON DIOXIDE,CO2 27.7 mmol/L (21.0-32.0); CREATININE 0.9 mg/dL (0.6-1.0); EST CRCL DRUG DOSING (CG) 84.79 mL/min; POTASSIUM,K 3.9 mmol/L (3.5-5.1); PROTEIN TOTAL,TP 7.4 g/dL (6.4-8.2)
[2023-09-04 14:00] LABS: APPEARANCE,URINE CLEAR; BILIRUBIN,URINE NEGATIVE (NEGATIVE); COLOR,URINE YELLOW; GLUCOSE,URINE NEGATIVE (NEGATIVE); KETONES,URINE NEGATIVE (NEGATIVE); LEUKOCYTE ESTERASE,URINE NEGATIVE (NEGATIVE); NITRITE,URINE NEGATIVE (NEGATIVE); OCCULT BLOOD,URINE NEGATIVE (NEGATIVE); PH,URINE 7.5 (5.0-8.0); PROTEIN,URINE NEGATIVE (NEGATIVE); UROBILINOGEN,URINE 0.2 EU/dL (<2.0)
[2023-09-04 15:43] VITALS: BP 118/87; PULSE 96
== END 2023-09-04 15:42 | disposition home or self-care (01) ==
LOC: MW.ED 12:05
DX: O20.0 Threatened abortion (principal); Z88.6 Allergy status to analgesic agent; Z91.011 Allergy to milk products; Z79.899 Other long term (current) drug therapy; Z3A.01 Less than 8 weeks gestation of pregnancy; Z75.8 Other problems related to medical facilities and other health care
CPT/HCPCS: 36415; 76801; 80053; 81003; 84702; 85025; 99284; J7030; 99282

== ENCOUNTER 2024-04-25 15:10 | Inpatient (IN) | payer BC ==
[2024-04-25 15:38] LABS: BASOPHILS ABSOLUTE AUTO 0.04 K/uL (0.00-0.20); BASOPHILS PERCENT AUTO 0.5 % (0.0-1.0); EOSINOPHILS ABSOLUTE AUTO 0.04 K/uL (0.00-0.45); EOSINOPHILS PERCENT AUTO 0.5 % (0.0-6.0); HEMATOCRIT 37.9 % (37.0-47.0); HEMOGLOBIN 12.6 g/dL (12.0-16.0); IMMATURE GRAN ABSOLUTE AUTO 0.08 K/uL (0.00-0.05); IMMATURE GRAN PERCENT AUTO 0.9 % (0.0-0.4); LYMPHOCYTES ABSOLUTE AUTO 2.21 K/uL (1.00-4.80); LYMPHOCYTES PERCENT AUTO 25.5 % (24.0-44.0); MEAN CORPUSCULAR HEMOGLOBIN 31.1 pg (28.0-32.0); MEAN CORPUSCULAR HGB CONC 33.2 g/dL (32.0-36.0); MEAN CORPUSCULAR VOLUME 93.6 fL (83.0-99.0); MEAN PLATELET VOLUME 11.8 fL (9.4-12.3); MONOCYTES ABSOLUTE AUTO 0.71 K/uL (0.00-0.80); MONOCYTES PERCENT AUTO 8.2 % (0.0-8.0); NEUTROPHILS ABSOLUTE AUTO 5.57 K/uL (1.80-7.70); NEUTROPHILS PERCENT AUTO 64.4 % (41.0-71.0); PLATELET COUNT,PLT 146 K/uL (150-400); RED BLOOD CELL COUNT 4.05 M/uL (4.10-5.30); WHITE BLOOD CELL COUNT,WBC 8.65 K/uL (3.9-11.3)
[2024-04-25] MEDS ORDERED: Sodium Chloride 0.9% 20 ML SDV IV PRN (16:37)
[2024-04-25] MEDS ORDERED: Sodium Chloride 0.9% 2.5 ML Syringe FLUSH PRN (16:37)
[2024-04-25] MEDS ORDERED: Citric Acid/Sodium Citrate Solution 30 ML Cup PO ONE (16:37)
[2024-04-25] MEDS ORDERED: Sodium Chloride 0.9% 10 ML Syringe FLUSH PRN (16:37)
[2024-04-25] MEDS ORDERED: Oxytocin/0.9 % Sodium Chloride 30 UNIT/500 ML BAG IV SCH (16:45)
[2024-04-25] MEDS ORDERED: Lactated Ringers 1,000 ML IV SCH (16:45)
[2024-04-25 17:36] LABS: A/G RATIO 0.7 (0.9-1.6); ALBUMIN 2.8 g/dL (3.4-5.0); BILIRUBIN TOTAL 0.6 mg/dL (0.2-1.0); CALCIUM 9.5 mg/dL (8.5-10.1); CARBON DIOXIDE,CO2 25.6 mmol/L (21.0-32.0); CREATININE 0.9 mg/dL (0.6-1.0); EST CRCL DRUG DOSING (CG) 84.01 mL/min; POTASSIUM,K 3.2 mmol/L (3.5-5.1); PROTEIN TOTAL,TP 7.1 g/dL (6.4-8.2)
[2024-04-25 17:59] LABS: CORONAVIRUS COVID-19 NAA NEGATIVE (NEGATIVE); INFLUENZA A NAA NEGATIVE (NEGATIVE); INFLUENZA B NAA NEGATIVE (NEGATIVE); RESPIRATORY SYNCYTIAL VIR NAA NEGATIVE (NEGATIVE)
[2024-04-25] MEDS: Metoclopramide 10 MG/2 ML SDV IVPUSH ONE (18:00)
[2024-04-25] MEDS ORDERED: Oxytocin 10 Units/1 ML SDV ONE (20:27)
[2024-04-25] MEDS ORDERED: ceFAZolin 1 GM Vial ONE (20:27)
[2024-04-25] MEDS ORDERED: EPINEPHrine 1 MG/1 ML Amp ONE (20:27)
[2024-04-25] MEDS ORDERED: Ropivacaine 0.5% 5 MG/ML 30 ML SDV ONE (20:27)
[2024-04-25] MEDS ORDERED: Bupivacaine 0.25% 30 ML SDV ONE (20:27)
[2024-04-25] MEDS ORDERED: fentaNYL 100 MCG/2 ML SDV ONE (20:27)
[2024-04-25] MEDS ORDERED: Ondansetron 4 MG/2 ML SDV ONE (20:27)
[2024-04-25] MEDS ORDERED: Ketorolac 30 MG/ML SDV ONE (20:27)
[2024-04-25] MEDS ORDERED: Morphine PF 10 MG/10 ML SDV ONE (20:27)
[2024-04-25] MEDS ORDERED: Phenylephrine HCl In 0.9% NaCl 1 MG/10 ML Syringe ONE ×2 (20:28→22:39)
[2024-04-25] MEDS ORDERED: Morphine 2 MG/ML SYRINGE IVPUSH PRN (20:44)
[2024-04-25] MEDS ORDERED: Naloxone 0.4 MG/ML SDV IVPUSH PRN (20:44)
[2024-04-25] MEDS ORDERED: Phenylephrine HCl In 0.9% NaCl 1 MG/10 ML Syringe IVPUSH PRN (20:44)
[2024-04-25] MEDS ORDERED: Acetaminophen/oxyCODONE 325-5 MG Tab PO PRN (20:44)
[2024-04-25] MEDS ORDERED: Nalbuphine 10 MG/1 ML Vial IVPUSH PRN (20:44)
[2024-04-25] MEDS ORDERED: ePHEDrine 50 MG/ML SDV IM PRN (20:44)
[2024-04-25] MEDS ORDERED: fentaNYL 50 MCG/ML SDV IVPUSH PRN (20:44)
[2024-04-25] MEDS ORDERED: fentaNYL 100 MCG/2 ML SDV IVPUSH PRN (20:44)
[2024-04-25] MEDS ORDERED: HYDROmorphone 1 MG/ML Syringe IVPUSH PRN (20:44)
[2024-04-25] MEDS ORDERED: Metoclopramide 10 MG/2 ML SDV IVPUSH PRN (20:44)
[2024-04-25] MEDS ORDERED: Ondansetron 4 MG/2 ML SDV IVPUSH PRN ×2 (20:44)
[2024-04-25] MEDS ORDERED: Albuterol 0.083% 2.5 MG/3 ML Neb Soln NEB PRN (20:44)
[2024-04-25] MEDS ORDERED: diphenhydrAMINE 50 MG/ML SDV IVPUSH PRN (20:44)
[2024-04-25] MEDS ORDERED: Azithromycin 500 MG in Sodium Chloride 0.9% 250 ML IV ONE (21:00)
[2024-04-25 21:19] LABS: CREATININE,URINE RAND 46.4 mg/dL; PROTEIN CREATININE RATIO,URINE 0.2; PROTEIN,URINE RANDOM 9.7 mg/dL (<11.9)
[2024-04-25] MEDS ORDERED: Tranexamic Acid 1,000 MG/10 ML Vial ONE (22:50)
[2024-04-25] MEDS ORDERED: dexmedeTOMIDine HCl 200 MCG/2 ML SDV ONE (22:58)
[2024-04-25] MEDS ORDERED: Acetaminophen 1,000 MG in Premix Bag 1 BAG IV SCH (23:30)
[2024-04-26] MEDS ORDERED: Lanolin 100% Cream 7 GM Tube TOP PRN (00:01)
[2024-04-26] MEDS ORDERED: Sodium Chloride 0.9% 2.5 ML Syringe FLUSH PRN (00:01)
[2024-04-26] MEDS ORDERED: Tranexamic Acid in NACL,ISO-OS 1,000 MG in Premix Bag 1 BAG IV ONE (00:01)
[2024-04-26] MEDS ORDERED: oxyCODONE 5 MG Tab PO PRN (00:01)
[2024-04-26] MEDS ORDERED: Sodium Chloride 0.9% 10 ML Syringe FLUSH PRN (00:01)
[2024-04-26] MEDS ORDERED: Carboprost Tromethamine 250 MCG/1 mL Vial IM PRN (00:01)
[2024-04-26] MEDS ORDERED: Misoprostol 200 MCG Tab RECTAL PRN (00:01)
[2024-04-26] MEDS ORDERED: Measles, Mumps & Rubella Vaccine 0.5 ML SDV SUBCUT ONE (00:01)
[2024-04-26] MEDS ORDERED: Ondansetron 4 MG/2 ML SDV IVPUSH PRN (00:01)
[2024-04-26] MEDS ORDERED: Oxytocin/0.9 % Sodium Chloride 30 UNIT/500 ML BAG IV SCH (00:15)
[2024-04-26] MEDS ORDERED: Ketorolac 30 MG/ML SDV IVPUSH SCH (00:30)
[2024-04-26 00:37] LABS: PH,UMBILICAL ARTERIAL 7.274 (7.18-7.38); PH,UMBILICAL VENOUS 7.335 (7.25-7.45)
[2024-04-26] MEDS: Methylergonovine 0.2 MG/1 ML Amp IM ONE (00:53)
[2024-04-26] MEDS: Acetaminophen 1,000 MG in Premix Bag 1 BAG IV SCH (01:54)
[2024-04-26] MEDS: Ketorolac 30 MG/ML SDV IVPUSH SCH (06:15)
[2024-04-26 06:19] LABS: BASOPHILS ABSOLUTE AUTO 0.03 K/uL (0.00-0.20); BASOPHILS PERCENT AUTO 0.2 % (0.0-1.0); HEMATOCRIT 34.3 % (37.0-47.0); HEMOGLOBIN 11.4 g/dL (12.0-16.0); IMMATURE GRAN ABSOLUTE AUTO 0.13 K/uL (0.00-0.05); IMMATURE GRAN PERCENT AUTO 0.9 % (0.0-0.4); LYMPHOCYTES ABSOLUTE AUTO 1.55 K/uL (1.00-4.80); MEAN CORPUSCULAR HEMOGLOBIN 31.1 pg (28.0-32.0); MEAN CORPUSCULAR HGB CONC 33.2 g/dL (32.0-36.0); MEAN CORPUSCULAR VOLUME 93.5 fL (83.0-99.0); MEAN PLATELET VOLUME 12.3 fL (9.4-12.3); MONOCYTES ABSOLUTE AUTO 0.46 K/uL (0.00-0.80); MONOCYTES PERCENT AUTO 3.3 % (0.0-8.0); NEUTROPHILS ABSOLUTE AUTO 11.89 K/uL (1.80-7.70); NEUTROPHILS PERCENT AUTO 84.6 % (41.0-71.0); PLATELET COUNT,PLT 133 K/uL (150-400); RED BLOOD CELL COUNT 3.67 M/uL (4.10-5.30); WHITE BLOOD CELL COUNT,WBC 14.06 K/uL (3.9-11.3)
[2024-04-26] MEDS: Docusate Sodium 100 MG Cap PO SCH (08:03)
[2024-04-26] MEDS: Acetaminophen 500 MG Tab PO SCH (18:35)
[2024-04-27] MEDS ORDERED: oxyCODONE 5 MG Tab PO PRN (00:01)
[2024-04-27] MEDS ORDERED: Ketorolac 30 MG/ML SDV ONE (01:45)
[2024-04-27] MEDS: Acetaminophen 500 MG Tab PO SCH (08:17)
[2024-04-27] MEDS: Acetaminophen 500 MG Tab ONE (08:18)
[2024-04-28 11:30] VITALS: BP 120/75; PULSE 64
[2024-04-30 20:01] LABS: HBV QNT BY NAAT (IU/ML) 147 IU/mL; HBV QNT BY NAAT (LOG IU/ML) 2.17 log IU/mL; HBV QNT BY NAAT INTERP Detected (Not Detected)
== END 2024-04-28 12:30 | disposition home or self-care (01) | DRG 540 ==
LOC: MW.OBCHECK 15:10 → MW.OB 16:37 → OBSVTOIN 22:35 → MW.OB 22:35
PROVIDERS: ADMIT Obstetrics & Gynecology; ATTEND Obstetrics & Gynecology Obstetrics
PROC: 10D00Z1 Extraction of Products of Conception, Low, Open Approach (ICD-10-PCS; principal; 2024-04-25 21:00)
DX: O24.311 Unspecified pre-existing diabetes mellitus in pregnancy, first trimester (principal); Z3A.38 38 weeks gestation of pregnancy; O13.4 Gestational [pregnancy-induced] hypertension without significant proteinuria, complicating childbirth; O99.12 Other diseases of the blood and blood-forming organs and certain disorders involving the immune mechanism complicating childbirth; Z37.0 Single live birth; O99.284 Endocrine, nutritional and metabolic diseases complicating childbirth; E87.6 Hypokalemia; O98.42 Viral hepatitis complicating childbirth; B18.1 Chronic viral hepatitis B without delta-agent; O34.13 Maternal care for benign tumor of corpus uteri, third trimester; D25.9 Leiomyoma of uterus, unspecified; O69.2XX0 Labor and delivery complicated by other cord entanglement, with compression, not applicable or unspecified
CPT/HCPCS: 01961; 0241U; 36415; 59025; 59514; 64488; 76815; 76815-26; 80053; 82570; 82803; 84112; 84156; 85025; 86592; 86850; 86900; 86901; 87517; A9270-GY; J0131; J0171; J0665; J0690; J1100; J1885; J2274; J2371; J2405; J2590; J2765; J2795; J3010

== ENCOUNTER 2024-05-10 18:13 | Emergency (ER) | payer BC ==
[2024-05-10] MEDS ORDERED: Sodium Chloride 0.9% 10 ML Syringe FLUSH PRN (18:17)
[2024-05-10] MEDS ORDERED: Sodium Chloride 0.9% 2.5 ML Syringe FLUSH PRN (18:17)
[2024-05-10 18:22] VITALS: PULSE 89
[2024-05-10 18:40] LABS: BASOPHILS ABSOLUTE AUTO 0.04 K/uL (0.00-0.20); BASOPHILS PERCENT AUTO 0.6 % (0.0-1.0); EOSINOPHILS ABSOLUTE AUTO 0.14 K/uL (0.00-0.45); EOSINOPHILS PERCENT AUTO 2.2 % (0.0-6.0); HEMATOCRIT 45.4 % (37.0-47.0); HEMOGLOBIN 15.3 g/dL (12.0-16.0); IMMATURE GRAN ABSOLUTE AUTO 0.01 K/uL (0.00-0.05); IMMATURE GRAN PERCENT AUTO 0.2 % (0.0-0.4); LYMPHOCYTES ABSOLUTE AUTO 3.57 K/uL (1.00-4.80); MEAN CORPUSCULAR HEMOGLOBIN 30.7 pg (28.0-32.0); MEAN CORPUSCULAR HGB CONC 33.7 g/dL (32.0-36.0); MEAN PLATELET VOLUME 11.4 fL (9.4-12.3); MONOCYTES ABSOLUTE AUTO 0.51 K/uL (0.00-0.80); NEUTROPHILS ABSOLUTE AUTO 2.11 K/uL (1.80-7.70); PLATELET COUNT,PLT 243 K/uL (150-400); RED BLOOD CELL COUNT 4.99 M/uL (4.10-5.30); WHITE BLOOD CELL COUNT,WBC 6.38 K/uL (3.9-11.3)
[2024-05-10 19:06] LABS: A/G RATIO 0.8 (0.9-1.6); ALBUMIN 3.6 g/dL (3.4-5.0); BILIRUBIN TOTAL 0.8 mg/dL (0.2-1.0); CALCIUM 9.4 mg/dL (8.5-10.1); CARBON DIOXIDE,CO2 26.2 mmol/L (21.0-32.0); CREATININE 0.9 mg/dL (0.6-1.0); EST CRCL DRUG DOSING (CG) 84.01 mL/min; POTASSIUM,K 3.2 mmol/L (3.5-5.1); PROTEIN TOTAL,TP 7.9 g/dL (6.4-8.2)
[2024-05-10 19:09] LABS: APPEARANCE,URINE HAZY; COLOR,URINE STRAW; GLUCOSE,URINE NEGATIVE (NEGATIVE); PH,URINE 6.5 (5.0-8.0); PROTEIN,URINE NEGATIVE (NEGATIVE)
[2024-05-10 19:10] LABS: BILIRUBIN,URINE NEGATIVE (NEGATIVE); KETONES,URINE NEGATIVE (NEGATIVE); LEUKOCYTE ESTERASE,URINE SMALL (NEGATIVE); NITRITE,URINE NEGATIVE (NEGATIVE); OCCULT BLOOD,URINE LARGE (NEGATIVE); UROBILINOGEN,URINE 0.2 EU/dL (<2.0)
[2024-05-10 19:17] LABS: BACTERIA,URINE RARE (NEGATIVE); EPITHELIAL CELLS,URINE OCCASIONAL (NONE-FEW); WBC,URINE 0-5 (0-5/HPF)
[2024-05-10 19:21] LABS: CREATININE,URINE RAND 8.1 mg/dL
[2024-05-10 19:23] LABS: PROTEIN,URINE RANDOM < 6.0 mg/dL (<11.9)
[2024-05-10] MEDS: Iopamidol 755 MG/ML 500 ML Multipack Bottle IVPUSH ONE (20:06)
[2024-05-10] MEDS: Meclizine 25 MG Tab PO STA (20:19)
[2024-05-10 21:34] VITALS: BP 117/83
== END 2024-05-10 21:38 | disposition home or self-care (01) ==
LOC: MW.ED 18:13
DX: O99.893 Other specified diseases and conditions complicating puerperium (principal); R07.9 Chest pain, unspecified; R06.02 Shortness of breath; R42 Dizziness and giddiness; Z86.16 Personal history of COVID-19; Z88.6 Allergy status to analgesic agent; Z91.011 Allergy to milk products; Z79.899 Other long term (current) drug therapy; Z75.8 Other problems related to medical facilities and other health care
CPT/HCPCS: 36415; 70450; 71275; 80053; 81001; 82570; 83615; 83690; 83735; 84156; 84484; 85025; 87086; 93005; 99285; A9270; Q9967; 93010; 99284

== ENCOUNTER 2024-07-01 01:45 | Emergency (ER) | payer BC ==
[2024-07-01 02:13] LABS: HEMATOCRIT 40.2 % (37.0-47.0); HEMOGLOBIN 13.8 g/dL (12.0-16.0); MEAN CORPUSCULAR HEMOGLOBIN 31.1 pg (28.0-32.0); MEAN CORPUSCULAR HGB CONC 34.3 g/dL (32.0-36.0); MEAN CORPUSCULAR VOLUME 90.5 fL (83.0-99.0); MEAN PLATELET VOLUME 11.7 fL (9.4-12.3); PLATELET COUNT,PLT 218 K/uL (150-400); RED BLOOD CELL COUNT 4.44 M/uL (4.10-5.30)
[2024-07-01] MEDS: Meclizine 25 MG Tab PO ONE (02:14)
[2024-07-01] MEDS: Sodium Chloride 0.9% 1,000 ML IV ONE (02:14)
[2024-07-01 02:31] LABS: BLOOD UREA NITROGEN,BUN 15 mg/dL (7.0-18.0); CALCIUM 9.4 mg/dL (8.5-10.1); CARBON DIOXIDE,CO2 25.5 mmol/L (21.0-32.0); CHLORIDE,CL 102 mmol/L (98-107); CREATININE 0.9 mg/dL (0.6-1.0); GLUCOSE RANDOM 114 mg/dL (74-106); POTASSIUM,K 3.4 mmol/L (3.5-5.1); SODIUM,NA 139 mmol/L (136-145)
[2024-07-01 02:34] LABS: ESTIMATED GFR 87 mL/min (>60)
[2024-07-01 03:03] LABS: EOSINOPHILS ABSOLUTE MAN 0.09 K/uL (0.00-0.45); EOSINOPHILS PERCENT MAN 1 % (0-6); LYMPHOCYTES ABSOLUTE MAN 5.52 K/uL (1.00-4.80); LYMPHOCYTES PERCENT MAN 62 % (24-44); MONOCYTES ABSOLUTE MAN 0.71 K/uL (0.00-0.80); MONOCYTES PERCENT MAN 8 % (0-8); SEG NEUTROPHILS ABSOLUTE MAN 2.58 K/uL (1.80-7.70); SEG NEUTROPHILS PERCENT MAN 29 % (41-71)
[2024-07-01 03:13] LABS: APPEARANCE,URINE CLEAR; BILIRUBIN,URINE NEGATIVE (NEGATIVE); COLOR,URINE YELLOW; GLUCOSE,URINE NEGATIVE (NEGATIVE); KETONES,URINE NEGATIVE (NEGATIVE); LEUKOCYTE ESTERASE,URINE NEGATIVE (NEGATIVE); NITRITE,URINE NEGATIVE (NEGATIVE); OCCULT BLOOD,URINE LARGE (NEGATIVE); PH,URINE 6.5 (5.0-8.0); PROTEIN,URINE NEGATIVE (NEGATIVE); UROBILINOGEN,URINE 0.2 EU/dL (<2.0)
[2024-07-01 03:21] LABS: AMPHETAMINES SCREEN, URINE NEGATIVE (CUTOFF=500); BARBITURATE SCREEN,URINE NEGATIVE (CUTOFF=200); BENZODIAZEPINES SCREEN,URINE NEGATIVE (CUTOFF=150); BUPRENORPHINE SCREEN,URINE NEGATIVE (CUTOFF=10); METHADONE SCREEN, URINE NEGATIVE (CUTOFF=200); METHAMPHETAMINES SCREEN, URINE NEGATIVE (CUTOFF=500); OXYCODONE SCREEN,URINE NEGATIVE (CUT0FF=100); PCP SCREEN,URINE NEGATIVE (CUTOFF=25); THC SCREEN,URINE 20 NG/ML NEGATIVE (CUTOFF=50)
[2024-07-01 03:36] VITALS: BP 130/85; PULSE 84
[2024-07-01 03:37] LABS: BACTERIA,URINE FEW (NEGATIVE); EPITHELIAL CELLS,URINE OCCASIONAL (NONE-FEW); RBC,URINE 50-75 (0-2/HPF); WBC,URINE 0-1 (0-5/HPF)
== END 2024-07-01 04:00 | disposition home or self-care (01) ==
LOC: MW.ED 01:45
DX: D25.9 Leiomyoma of uterus, unspecified (principal); R42 Dizziness and giddiness; Z88.6 Allergy status to analgesic agent; Z91.011 Allergy to milk products; Z79.899 Other long term (current) drug therapy
CPT/HCPCS: 36415; 80048; 80305; 81001; 84484; 84703; 85025; 93005; 96360; 99284; A9270; J7030; 93010

== ENCOUNTER 2024-09-03 22:38 | Emergency (ER) | payer BC ==
[2024-09-03] MEDS: hydrOXYzine HCl 25 MG Tab PO ONE (23:19)
[2024-09-03 23:52] VITALS: BP 149/80; PULSE 97
== END 2024-09-03 23:53 | disposition home or self-care (01) ==
LOC: MW.ED 22:38
DX: F41.0 Panic disorder [episodic paroxysmal anxiety] (principal); Z88.8 Allergy status to other drugs, medicaments and biological substances; Z79.899 Other long term (current) drug therapy
CPT/HCPCS: 93005; 99284; A9270; 93010; 99283